=== PATIENT | female | born 1995 | race American Indian/Alaskan Native ===

== ENCOUNTER 2019-02-10 13:21 | Emergency (ER) | payer OTHER ==
[2019-02-10] MEDS ORDERED: TYLENOL PO ONE (14:17)
--- NOTE | 2019-02-10 14:17 | Emergency Department Report ---
Chief Complaint: Sore Throat Stated Complaint: SORE THROAT/BODY PAIN Time Seen by Provider: 02/10/19 14:13 - HPI History of Present Illness: pt c/o sore throat three days hurts to swallow (+) body aches (+)fever (+) marijuana use took ibuprofen at 11 AM (+) sick contact with strep swabbed for strep in triage, sent to lab MSE screening note: Focused history and physical exam performed. Due to findings the following was ordered: rapid strep, tylenol ordered ED Disposition for MSE Condition: Stable
[2019-02-10] MEDS ORDERED: BICILLIN L-A IM ONE (15:39)
--- NOTE | 2019-02-10 15:44 | Emergency Department Report ---
ED Peds HEENT HPI - General Chief Complaint: Sore Throat Stated Complaint: SORE THROAT/BODY PAIN Time Seen by Provider: 02/10/19 14:13 Source: patient Mode of arrival: Ambulatory Limitations: No Limitations - History of Present Illness Initial Comments: Patient is a 23-year-old female who is presenting with sore throat for the past 2 days. Patient states that throat is painful when she swallows and pain is 6 out of 10 in severity. Patient has had objective fevers at home as well as mild body aches. Patient states she has mild congestion and a very minimal cough. She denies any nausea vomiting diarrhea at this time. Severity scale (0 -10): 4 - Related Data Previous Rx's Medication Instructions Recorded Last Taken Type HYDROcodone/APAP 5-325 [[place] 1 each PO Q6HR PRN #15 tablet 02/10/19 Unknown Rx 5/325] predniSONE [Deltasone] 20 mg PO QDAY #5 tab 02/10/19 Unknown Rx Allergies Allergy/AdvReac Type Severity Reaction Status Date / Time SEAFOOD Allergy Hives Uncoded 02/10/19 13:22 ED Review of Systems ROS: Stated complaint: SORE THROAT/BODY PAIN Other details as noted in HPI Comment: All other systems reviewed and negative ED Peds HEENT EXAM - General General appearance: alert Limitations: No Limitations - Head Head exam: Positive: atraumatic - Eye Eye Exam: Normal Apperance, PERRL, EOMI - ENT Throat Exam: Tonsillar Hypertorphy: Positive: Tonsillar Exudate - Neck Neck exam: Positive: normal inspection, lymphadenopathy - Respiratory Respiratory exam: Positive: normal lung sounds bilaterally. Negative: respiratory distress, wheezes, rales, rhonchi - Cardiovascular Cardiovascular Exam: Positive: regular rate, normal rhythm - GI/Abdominal GI/Abdominal exam: Positive: soft. Negative: distended, tenderness, guarding - Neurological Neurological Exam: Positive: Alert, Altered, Oriented X3 - Psychiatric Psychiatric exam: Positive: normal affect - Skin Skin exam: Positive: warm, dry, intact ED Course Vital Signs 02/10/19 14:14 Temperature 100.2 F H Pulse Rate 132 H Respiratory 18 Rate Blood Pressure 122/80 O2 Sat by Pulse 98 Oximetry ED Medical Decision Making - Medical Decision Making Patient has fever anterior cervical lymph nodes no cough and a sore throat and she is meeting criteria for him. Antibiotic therapy. Patient also has a family member who tested positive for strep almost a week ago. Critical care attestation.: If time is entered above; I have spent that time in minutes in the direct care of this critically ill patient, excluding procedure time. ED Disposition Clinical Impression: Pharyngitis Qualifiers: Pharyngitis/tonsillitis etiology: unspecified etiology Qualified Code(s): J02.9 - Acute pharyngitis, unspecified Disposition: TO HOME OR SELFCARE Is pt being admited?: No Does the pt Need Aspirin: No Condition: Stable Instructions: Pharyngitis (ED) Referrals: DONTE SPANGLER MD [Primary Care Provider] - 3-5 Days Time of Disposition: 15:44
[2019-02-10 16:17] VITALS: BP 121/77
== END 2019-02-10 16:09 | disposition home or self-care (01) ==
LOC: ED 13:21
DX: J02.9 Acute pharyngitis, unspecified (principal)
CPT/HCPCS: 87430; 96372; 99283; J0561

== ENCOUNTER 2019-02-27 09:43 | Emergency (ER) | payer OTHER ==
[2019-02-27] MEDS ORDERED: IBUPROFEN PO ONE (10:21)
[2019-02-27] MEDS ORDERED: TESSALON PERLES PO ONE (10:21)
[2019-02-27] MEDS ORDERED: ZOFRAN ODT PO ONE (10:28)
--- NOTE | 2019-02-27 10:48 | Emergency Department Report ---
Upper Respiratory HPI - HPI Chief Complaint: Upper Respiratory Infection Stated Complaint: GENERAL SICKNESS/BACK PAIN Time Seen by Provider: 02/27/19 10:21 Duration: 1 week URI Symptoms: Rhinorrhea: Yes, Sore Throat: No, Ear Pain: No, Cough: Yes, Shortness of Breath: No, Sick Contacts: No, Unable to Take Fluids: No, Urine Output Abnormal: No, Listless Behavior: No Other History: This is a 23-year-old female nontoxic, well nourished in appearance, no acute signs of distress presents to the ED with c/o of productive cough, body aches, rhinorrhea, nasal congestion x1 week. Patient describes productive cough as yellow mucus production. Patient denies any sick contact. Patient denies any recent travels, long car, recent hospital stays. Patient denies any calf pain or calf tenderness. Patient stated that coughing made her have some nausea vomiting. Patient denies any chest pain, short of breath, fever, chills, hemoptysis, numbness, tingling, headache or stiff neck. Patient denies any allergies. - Home Meds and Allergies Home Medications: Previous Rx's Medication Instructions Recorded Last Taken Type HYDROcodone/APAP 5-325 [[place] 1 each PO Q6HR PRN #15 tablet 02/10/19 Unknown Rx 5/325] predniSONE [Deltasone] 20 mg PO QDAY #5 tab 02/10/19 Unknown Rx Azithromycin [Zithromax Z-JO] 250 mg PO DAILY #6 tablet 02/27/19 Unknown Rx Benzonatate [Tessalon Perle] 100 mg PO Q8H PRN #20 capsule 02/27/19 Unknown Rx Ibuprofen [Motrin] 600 mg PO Q8H PRN #20 tablet 02/27/19 Unknown Rx Allergies/Adverse Reactions: Allergies Allergy/AdvReac Type Severity Reaction Status Date / Time SEAFOOD Allergy Hives Uncoded 02/10/19 13:22 ED Review of Systems ROS: Stated complaint: GENERAL SICKNESS/BACK PAIN Other details as noted in HPI Constitutional: denies: chills, fever Eyes: denies: eye pain, eye discharge, vision change ENT: congestion. denies: ear pain, throat pain Respiratory: cough. denies: shortness of breath, wheezing Cardiovascular: denies: chest pain, palpitations Endocrine: no symptoms reported Gastrointestinal: nausea, vomiting. denies: abdominal pain, diarrhea Genitourinary: denies: urgency, dysuria, discharge Musculoskeletal: denies: back pain, joint swelling, arthralgia Skin: denies: rash, lesions Neurological: denies: headache, weakness, paresthesias Psychiatric: denies: anxiety, depression Hematological/Lymphatic: denies: easy bleeding, easy bruising ED Past Medical Hx - Past Medical History Previous Medical History?: No - Surgical History Past Surgical History?: No - Social History Smoking Status: Never Smoker Substance Use Type: Marijuana - Medications Home Medications: Home Medications Medication Instructions Recorded Confirmed Last Taken Type HYDROcodone/APAP 5-325 [[place] 1 each PO Q6HR PRN #15 tablet 02/10/19 Unknown Rx 5/325] predniSONE [Deltasone] 20 mg PO QDAY #5 tab 02/10/19 Unknown Rx Azithromycin [Zithromax Z-JO] 250 mg PO DAILY #6 tablet 02/27/19 Unknown Rx Benzonatate [Tessalon Perle] 100 mg PO Q8H PRN #20 capsule 02/27/19 Unknown Rx Ibuprofen [Motrin] 600 mg PO Q8H PRN #20 tablet 02/27/19 Unknown Rx ED Bronchiolitis Physical Exam - Exam General: Vital signs noted. No distress. Alert and acting appropriately. Neurologic: Alert and oriented, no deficits. Musculoskeletal: Unremarkable. ED Physical Exam - General Limitations: No Limitations General appearance: alert, in no apparent distress - Head Head exam: Present: atraumatic, normocephalic - Eye Eye exam: Present: normal appearance - ENT ENT exam: Present: normal exam, normal orophraynx - Neck Neck exam: Present: normal inspection, full ROM. Absent: tenderness, meningismus, lymphadenopathy - Respiratory Respiratory exam: Present: normal lung sounds bilaterally. Absent: respiratory distress, wheezes, rales, rhonchi, stridor, chest wall tenderness, accessory muscle use, decreased breath sounds, prolonged expiratory - Cardiovascular Cardiovascular Exam: Present: regular rate, normal rhythm, normal heart sounds. Absent: bradycardia, tachycardia, irregular rhythm, systolic murmur, diastolic murmur, rubs, gallop - GI/Abdominal GI/Abdominal exam: Present: soft, normal bowel sounds. Absent: distended, tenderness, guarding, rebound, rigid, diminished bowel sounds - Extremities Exam Extremities exam: Present: normal inspection, full ROM - Back Exam Back exam: Present: normal inspection, full ROM - Neurological Exam Neurological exam: Present: alert, oriented X3 - Psychiatric Psychiatric exam: Present: normal affect, normal mood - Skin Skin exam: Present: warm, dry, intact, normal color. Absent: rash ED Course - Reevaluation(s) Reevaluation #1: 02/27/19 10:48 Patient is speaking in full sentences with no signs of distress noted. ED Medical Decision Making - Medical Decision Making This is a 23-year-old female that presents with bronchitis. Patient is stable and was examined by me. Chest x-ray has been obtained and dictated by radiologist with normal exam. Patient is notified of x-ray results with no questions noted. Due to patient having symptoms of upper respiratory infection and worsening I will treat patient empirically with zpak. Patient was instructed to increase hydration, rest and take Motrin for fever episodes. Patient received motrin and tesslone perrls in the ED. Vitals stable. Patient is nonfebrile and normal heart rate. Patient was instructed Follow-up with a primary care doctor in 3-5 days or if symptoms worsen and continue return to emergency room as soon as possible. At time time of discharge, the patient does not seem toxic or ill in appearance. No acute signs of distress noted. Patient agrees to discharge treatment plan of care. No further questions noted by the patient. Critical care attestation.: If time is entered above; I have spent that time in minutes in the direct care of this critically ill patient, excluding procedure time. ED Disposition Clinical Impression: Bronchitis Disposition: DC-01 TO HOME OR SELFCARE Is pt being admited?: No Does the pt Need Aspirin: No Condition: Stable Instructions: Acute Bronchitis (ED) Additional Instructions: Follow-up with a primary care doctor in 3-5 days or if symptoms worsen and continue return to emergency room as soon as possible. Prescriptions: Ibuprofen [Motrin] 600 mg PO Q8H PRN #20 tablet PRN Reason: Pain Benzonatate [Tessalon Perle] 100 mg PO Q8H PRN #20 capsule PRN Reason: Cough Azithromycin [Zithromax Z-JO] 250 mg PO DAILY #6 tablet Referrals: PRIMARY CAREMD [Primary Care Provider] - 3-5 Days ZACHARY MOILNA MD [Staff Physician] - 3-5 Days [facility] [Outside] - 3-5 Days [facility] [Outside] - 3-5 Days Forms: Work/School Release Form(ED)
[2019-02-27 10:51] VITALS: BP 107/73
--- NOTE | 2019-02-27 10:51 | XRay Report ---
PROCEDURE: XR CHEST ROUTINE 2V TECHNIQUE: PA and lateral chest HISTORY: cough COMPARISONS: None FINDINGS: Trachea midline. Heart size normal. No pneumothorax. No sizable effusion. No acute airspace disease No acute bony abnormality IMPRESSION: No active pulmonary disease.. This document is electronically signed by Edu Rodriguez MD., February 27 2019 10:49:18 AM ET
[2019-02-28] MEDS ORDERED: NACL 0.9% 1000 ML 1,000 ML ONE (09:34)
== END 2019-02-27 11:00 | disposition home or self-care (01) ==
LOC: ED 09:43
DX: J40 Bronchitis, not specified as acute or chronic (principal); Z91.013 Allergy to seafood
CPT/HCPCS: 71046; 99283; J7030; Q0162

== ENCOUNTER 2019-02-28 07:40 | Emergency (ER) | payer OTHER ==
--- NOTE | 2019-02-28 08:44 | Emergency Department Report ---
ED Back Pain/Injury HPI - General Chief Complaint: Nausea/Vomiting/Diarrhea Stated Complaint: FLU LIKE SYM/PAIN Time Seen by Provider: 02/28/19 08:20 Source: patient Limitations: No Limitations - History of Present Illness Initial Comments: Patient is a 23-year-old female who comes to the ER for the second day in a row complaining of symptoms that occur at night around 5 6:00 where she gets up with chills, shaking, and vomiting. Patient was recently diagnosed with bronchitis and sent home with medications. Patient denies chest pain or shortness of breath. She denies any medical history. She denies previous surgeries.Pt has no pcp. On arrival VSS, she is not vomiting and is in no acute distress Similar Symptoms Previously: Yes Place: home Radiation: none Severity: mild Consistency: intermittent Improves With: none Worsens With: none Associated Symptoms: fever/chills, nausea/vomiting - Related Data Previous Rx's Medication Instructions Recorded Last Taken Type Ondansetron [Zofran Odt] 4 mg PO Q8HR PRN #10 tab.rapdis 02/28/19 Unknown Rx Allergies Allergy/AdvReac Type Severity Reaction Status Date / Time SEAFOOD Allergy Hives Uncoded 02/10/19 13:22 ED Review of Systems ROS: Stated complaint: FLU LIKE SYM/PAIN Other details as noted in HPI Comment: All other systems reviewed and negative Constitutional: chills Eyes: as per HPI. denies: eye pain ENT: as per HPI. denies: ear pain Respiratory: see HPI Cardiovascular: denies: chest pain, palpitations Endocrine: denies: excessive sweating Gastrointestinal: as per HPI, nausea, vomiting. denies: abdominal pain Genitourinary: as per HPI. denies: urgency, dysuria Musculoskeletal: as per HPI, back pain Skin: denies: rash, lesions Neurological: denies: headache, weakness Psychiatric: denies: anxiety, depression Hematological/Lymphatic: denies: easy bleeding ED Past Medical Hx - Past Medical History Medical history: no medical history Surgical history: no surgical history Psychiatric history: no pertinent history BELLY DANCER history: no BELLY DANCER history Family history: no significant family history - Social History Smoking Status: Never Smoker ED Back Pain Physical Exam - Exam General: Vital signs noted. No distress. Alert and acting appropriately. A/O NO NYSTAGMUS TM NORMAL, NOT RED, NO BULGING S1S2 NO MURMUR BRUIT OR RUB LUNGS CLEAR TO AUSCULTATION ABD SOFT NON TENDER NO CVA TENDERNESS Back/Abdomen: No Abdominal Tenderness, No Perithoracic Tenderness, No Perilumbar Tenderness, No Sacroiliac Tenderness, No Flank Tenderness, No Straight Leg Raise Pain Neuro: Yes Normal Sensation, Yes Normal DTR's, Yes Normal Gait, No Motor Weakness ED Course Vital Signs 02/28/19 07:52 Temperature 98.1 F Pulse Rate 66 Respiratory 16 Rate Blood Pressure 127/71 O2 Sat by Pulse 99 Oximetry Ed Back Pain Tests - Tests Tests: Abnormal UA ED Medical Decision Making - Lab Data Result diagrams: 02/28/19 08:56 02/28/19 08:56 - Medical Decision Making Vital Signs 02/28/19 07:52 Temperature 98.1 F Pulse Rate 66 Respiratory 16 Rate Blood Pressure 127/71 O2 Sat by Pulse 99 Oximetry Labs 02/28/19 02/28/19 02/28/19 08:40 08:56 08:56 WBC 5.4 RBC 4.03 Hgb 11.7 Hct 34.6 MCV 86 MCH 29 MCHC 34 RDW 14.2 Plt Count 326 Sodium 141 Potassium 3.9 Chloride 106.2 Carbon Dioxide 24 Anion Gap 15 BUN 7 Creatinine 0.9 Estimated GFR > 60 BUN/Creatinine Ratio 8 Glucose 97 Calcium 9.2 Total Bilirubin 0.50 Direct Bilirubin < 0.2 AST 13 ALT 8 Alkaline Phosphatase 61 Total Protein 6.8 Albumin 4.0 Albumin/Globulin Ratio 1.4 Lipase 16 Urine Color Yellow Urine Turbidity Slightly-cloudy Urine pH 5.0 Ur Specific [place] 1.025 Urine Protein <15 mg/dl Urine Glucose (UA) Neg Urine Ketones 80 Urine Blood Sm Urine Nitrite Neg Urine Bilirubin Neg Urine Urobilinogen < 2.0 Ur Leukocyte Esterase Tr Urine WBC (Auto) 6.0 Urine RBC (Auto) 1.0 U Epithel Cells (Auto) 13.0 Urine Bacteria (Auto) 1+ Urine Mucus 1+ Urine HCG, Qual Negative urine noted 1L NS and zofran given labs noted discussed findings with pt. she was recently diagnosed with URTI and sent home on azithromycin and other symptom control meds. Pt was reassured. we discussed the findings and timing of her medications which may be making her nauseated. Just reassuring the patient seem to make her feel better. She is being discharged home with family and a pcp referral to follow up in 48 hours. Vital Signs 02/28/19 02/28/19 07:52 10:38 Temperature 98.1 F Pulse Rate 66 Respiratory 16 17 Rate Blood Pressure 127/71 O2 Sat by Pulse 99 Oximetry Critical care attestation.: If time is entered above; I have spent that time in minutes in the direct care of this critically ill patient, excluding procedure time. ED Disposition Clinical Impression: Dehydration, Bronchitis Disposition: - TO HOME OR SELFCARE Is pt being admited?: No Does the pt Need Aspirin: No Condition: Stable Instructions: Dehydration (ED), Chronic Bronchitis (ED) Additional Instructions: MOTRIN OR TYLENOL FOR PAIN HYDRATE WELL WITH WATER MED ORDERED TODAY FOLLOW UP WITH PCP REFERRAL BELOW. DIET AND ACTIVITY TOLERATED CONTINUE YOUR MEDS GIVEN TO YOU 02/27 WHEN HERE ALL LABS NORMAL TODAY Prescriptions: Ondansetron [Zofran Odt] 4 mg PO Q8HR PRN #10 tab.rapdis PRN Reason: Vomiting Referrals: DONTE SPANGLER MD [Primary Care Provider] - 3-5 Days Time of Disposition: 10:21
[2019-02-28 08:57] LABS: Bacteria,Urine 1+ /HPF (Negative); Bilirubin,Urine NEG (Negative); Blood,Urine SM (Negative); Color,Urine Yellow (Yellow); Mucus,Urine 1+ /HPF; Protein,Urine <15 mg/dL mg/dL (Negative); Urobilinogen,Urine < 2.0 mg/dL (<2.0)
[2019-02-28 08:59] LABS: HCG Qualitative,Urine Negative (Negative)
[2019-02-28] MEDS ORDERED: NACL 0.9% 1000 ML 1,000 ML IV ONE (09:13)
[2019-02-28 09:19] LABS: Hematocrit 34.6 % (30.3-42.9); Hemoglobin 11.7 gm/dl (10.1-14.3); Mean Corpuscular HGB Conc 34 % (30-34); Mean Corpuscular Volume 86 fl (79-97); Platelet Count 326 K/mm3 (140-440); Red Blood Count 4.03 M/mm3 (3.65-5.03); Red Cell Distribution Width 14.2 % (13.2-15.2)
[2019-02-28 09:47] LABS: Alanine Aminotransferase 8 units/L (7-56); BUN/Creatinine Ratio 8; Blood Urea Nitrogen 7 mg/dL (7-17); Calcium 9.2 mg/dL (8.4-10.2); Hemolysis Index 1
[2019-02-28] MEDS ORDERED: ZOFRAN IV ONE (09:47)
[2019-02-28 09:48] LABS: Bilirubin,Direct < 0.2 mg/dL (0-0.2)
[2019-02-28] MEDS ORDERED: TORADOL IV ONE (10:29)
[2019-02-28 11:20] VITALS: BP 125/79
== END 2019-02-28 11:21 | disposition home or self-care (01) ==
LOC: ED 07:40
DX: E86.0 Dehydration (principal); J40 Bronchitis, not specified as acute or chronic; Z91.013 Allergy to seafood
CPT/HCPCS: 36415; 80048; 80076; 81001; 81025; 83690; 85027; 96361; 96374; 96375; 99283; J1885; J2405

== ENCOUNTER 2019-03-26 17:32 | Emergency (ER) | payer SELFPAY ==
[2019-03-26 17:39] VITALS: BP 140/96
== END 2019-03-26 19:20 | disposition left against medical advice (07) ==
LOC: ED 17:32
DX: R11.2 Nausea with vomiting, unspecified (principal); Z53.21 Procedure and treatment not carried out due to patient leaving prior to being seen by health care provider

== ENCOUNTER 2019-08-08 20:17 | Emergency (ER) | payer SELFPAY ==
--- NOTE | 2019-08-08 22:18 | Emergency Department Report ---
Blank Doc - Documentation Documentation: 23-year-old female that presents with vaginal discharge. This initial assessment/diagnostic orders/clinical plan/treatment(s) is/are subject to change based on patient's health status, clinical progression and re- assessment by fellow clinical providers in the ED. Further treatment and workup at subsequent clinical providers discretion. Patient/guardians urged not to elope from the ED as their condition may be serious if not clinically assessed and managed. Initial orders include: 1- Patient sent to [facility] for further evaluation and treatment 2- UA 3- pelvic exam to be done
[2019-08-08 22:20] VITALS: BP 123/89
[2019-08-09 01:42] LABS: Bacteria,Urine 1+ /HPF (Negative); Bilirubin,Urine NEG (Negative); Blood,Urine SM (Negative); Color,Urine Yellow (Yellow); Mucus,Urine 2+ /HPF; Protein,Urine <15 mg/dL mg/dL (Negative); Urobilinogen,Urine < 2.0 mg/dL (<2.0)
[2019-08-09 01:44] LABS: HCG Qualitative,Urine Negative (Negative)
== END 2019-08-09 00:37 | disposition left against medical advice (07) ==
LOC: ED 20:17
DX: N89.8 Other specified noninflammatory disorders of vagina (principal); Z53.21 Procedure and treatment not carried out due to patient leaving prior to being seen by health care provider
CPT/HCPCS: 81001; 81025

== ENCOUNTER 2020-01-09 13:40 | Emergency (ER) | payer SELFPAY ==
--- NOTE | 2020-01-09 13:53 | Emergency Department Report ---
Blank Doc - Documentation Documentation: 24-year-old female that presents with right sided chest pain and abnormal vagi nal bleeding. Worse with movement and resolved with rest. Stated pain causes SOB but otherwise denies any SOB. This initial assessment/diagnostic orders/clinical plan/treatment(s) is/are subject to change based on patient's health status, clinical progression and re- assessment by fellow clinical providers in the ED. Further treatment and workup at subsequent clinical providers discretion. Patient/guardians urged not to elope from the ED as their condition may be serious if not clinically assessed and managed. Initial orders include: 1- Patient sent to [facility] for further evaluation and treatment 2- labs 3- EKG
[2020-01-09 13:55] VITALS: BP 125/71
[2020-01-09 14:54] LABS: Basophils % (Auto) 0.6 % (0.0-1.8); Eosinophils % (Auto) 0.4 % (0.0-4.3); Hematocrit 39.2 % (30.3-42.9); Lymphocytes # (Auto) 2.2 K/mm3 (1.2-5.4); Lymphocytes % (Auto) 28.4 % (13.4-35.0); Mean Corpuscular HGB Conc 33 % (30-34); Mean Corpuscular Volume 89 fl (79-97); Monocytes # (Auto) 0.8 K/mm3 (0.0-0.8); Monocytes % (Auto) 9.6 % (0.0-7.3); Platelet Count 329 K/mm3 (140-440); Red Blood Count 4.39 M/mm3 (3.65-5.03); Red Cell Distribution Width 13.7 % (13.2-15.2)
[2020-01-09 15:15] LABS: BUN/Creatinine Ratio 10; Blood Urea Nitrogen 8 mg/dL (7-17); Calcium 9.4 mg/dL (8.4-10.2); Hemolysis Index 5
[2020-01-09 18:48] LABS: Bacteria,Urine 1+ /HPF (Negative); Mucus,Urine 1+ /HPF
[2020-01-09 18:50] LABS: Color,Urine Yellow (Yellow)
[2020-01-09 18:51] LABS: Bilirubin,Urine Negative (Negative); Blood,Urine Moderate (Negative); PH,Urine 6.5 (5.0-7.0); Urobilinogen,Urine < 2.0 mg/dL (<2.0)
[2020-01-09] MEDS ORDERED: ALBUTEROL 2.5 MG/3 ML NEBU IH ONE (19:15)
--- NOTE | 2020-01-09 19:43 | Emergency Department Report ---
ED HPI - General Chief complaint: Vaginal Bleeding Stated complaint: CHEST TIGHTMESS,VAGINAL BLEEDING Time Seen by Provider: 01/09/20 13:52 Source: patient Mode of arrival: Ambulatory Limitations: No Limitations - History of Present Illness Initial comments: Ms. Levi is a 24-year-old -[place] female who presents for vaginal bleeding x1 month intermittently however states last menstrual cycle was 2 weeks ago. Vaginal bleeding bright red he is using 4-5 pads daily. Symptoms are exacerbated by nothing symptoms are relieved by nothing MD Complaint: abdominal pain, vaginal bleeding Onset/Timin -: month(s) Location: pelvis, abdomen Radiation: LLQ, RLQ Severity: moderate Severity scale (0 -10): 4 Quality: cramping Consistency: constant Improves with: none Worsens with: none Associated symptoms: vaginal bleeding, abdominal pain Vaginal bleeding: clots :: Yes Last menstrual period: 12/27/19 - Related Data : 0 Para: 0 Ab: 0 Previous Rx's Medication Instructions Recorded Last Taken Type Ondansetron [Zofran Odt] 4 mg PO Q8HR PRN #10 tab.rapdis 02/28/19 Unknown Rx Albuterol INH(or & Nicu Only) 2 puff IH QID PRN #8.5 gram 01/09/20 Unknown Rx [ProAir HFA Inhaler] cephALEXin [Keflex] 500 mg PO BID 10 Days #20 cap 01/09/20 Unknown Rx predniSONE [Deltasone] 40 mg PO QDAY 5 Days #10 tab 01/09/20 Unknown Rx Allergies Allergy/AdvReac Type Severity Reaction Status Date / Time SEAFOOD Allergy Hives Uncoded 03/26/19 17:33 ED Review of Systems ROS: Stated complaint: CHEST TIGHTMESS,VAGINAL BLEEDING Other details as noted in HPI Constitutional: denies: chills, fever Eyes: denies: eye pain, eye discharge, vision change ENT: denies: ear pain, throat pain Respiratory: cough, shortness of breath, wheezing Cardiovascular: chest pain (chest wall pain with cough ). denies: palpitations Endocrine: no symptoms reported Gastrointestinal: abdominal pain. denies: nausea, vomiting, diarrhea, constipation, melena Genitourinary: denies: urgency, dysuria, discharge Musculoskeletal: denies: back pain, joint swelling, arthralgia Skin: denies: rash, lesions Neurological: denies: headache, weakness, paresthesias Psychiatric: denies: anxiety, depression Hematological/Lymphatic: denies: easy bleeding, easy bruising ED Past Medical Hx - Past Medical History Previous Medical History?: Yes Hx Asthma: Yes - Surgical History Past Surgical History?: No - Social History Smoking Status: Never Smoker Substance Use Type: Marijuana - Medications Home Medications: Home Medications Medication Instructions Recorded Confirmed Last Taken Type Ondansetron [Zofran Odt] 4 mg PO Q8HR PRN #10 tab.rapdis 02/28/19 Unknown Rx Albuterol INH(or & Nicu Only) 2 puff IH QID PRN #8.5 gram 01/09/20 Unknown Rx [ProAir HFA Inhaler] cephALEXin [Keflex] 500 mg PO BID 10 Days #20 cap 01/09/20 Unknown Rx predniSONE [Deltasone] 40 mg PO QDAY 5 Days #10 tab 01/09/20 Unknown Rx ED Physical Exam - General Limitations: No Limitations General appearance: alert, in no apparent distress - Head Head exam: Present: atraumatic, normocephalic - Eye Eye exam: Present: normal appearance, EOMI Pupils: Present: normal accommodation - ENT ENT exam: Present: mucous membranes moist - Neck Neck exam: Present: normal inspection, full ROM. Absent: tenderness - Respiratory Respiratory exam: Present: normal lung sounds bilaterally, wheezes, chest wall tenderness (right lateral chest pain with palpation and deep inspiration). Absent: respiratory distress, rales, rhonchi, stridor, prolonged expiratory - Cardiovascular Cardiovascular Exam: Present: regular rate, normal rhythm, normal heart sounds. Absent: systolic murmur, diastolic murmur, rubs, gallop - GI/Abdominal GI/Abdominal exam: Present: soft, normal bowel sounds. Absent: distended, tenderness, guarding, rebound, rigid, bruit, hernia - Rectal Rectal exam: Present: deferred - External exam: Present: other (deferred per patient ) - Extremities Exam Extremities exam: Present: normal inspection, full ROM, normal capillary refill. Absent: tenderness, pedal edema, joint swelling - Back Exam Back exam: Present: normal inspection, full ROM. Absent: tenderness, CVA t enderness (R), CVA tenderness (L), muscle spasm, vertebral tenderness, rash noted - Neurological Exam Neurological exam: Present: alert, oriented X3, CN II-XII intact, normal gait, reflexes normal - Psychiatric Psychiatric exam: Present: normal affect, normal mood - Skin Skin exam: Present: warm, dry, intact, normal color. Absent: rash ED Course Vital Signs 01/09/20 13:52 Temperature 98.4 F Pulse Rate 83 Respiratory 18 Rate Blood Pressure 125/71 O2 Sat by Pulse 100 Oximetry ED Medical Decision Making - Lab Data Result diagrams: 01/09/20 14:30 01/09/20 14:30 Labs 01/09/20 01/09/20 01/09/20 14:30 14:30 14:30 WBC 7.9 RBC 4.39 Hgb 13.0 Hct 39.2 MCV 89 MCH 30 MCHC 33 RDW 13.7 Plt Count 329 Lymph % (Auto) 28.4 [place] % (Auto) 9.6 H Eos % (Auto) 0.4 Baso % (Auto) 0.6 Lymph # 2.2 [place] # 0.8 Eos # 0.0 Baso # 0.0 Seg Neutrophils % 61.0 Seg Neutrophils # 4.8 Sodium 139 Potassium 3.8 Chloride 102.1 Carbon Dioxide 22 Anion Gap 19 BUN 8 Creatinine 0.8 Estimated GFR > 60 BUN/Creatinine Ratio 10 Glucose 96 Calcium 9.4 HCG, Qual Positive HCG, Quant Urine Color Urine Turbidity Urine pH Ur Specific [place] Urine Protein Urine Glucose (UA) Urine Ketones Urine Blood Urine Nitrite Ur Reducing Substances Urine Bilirubin Urine Ictotest Urine Urobilinogen Ur Leukocyte Esterase Urine WBC (Auto) Urine RBC (Auto) U Epithel Cells (Auto) Urine Bacteria (Auto) Urine Mucus Blood Type 01/09/20 01/09/20 01/09/20 17:55 Unknown Unknown WBC RBC Hgb Hct MCV MCH MCHC RDW Plt Count Lymph % (Auto) [place] % (Auto) Eos % (Auto) Baso % (Auto) Lymph # [place] # Eos # Baso # Seg Neutrophils % Seg Neutrophils # Sodium Potassium Chloride Carbon Dioxide Anion Gap BUN Creatinine Estimated GFR BUN/Creatinine Ratio Glucose Calcium HCG, Qual HCG, Quant 749.4 H Urine Color Yellow Urine Turbidity Hazy Urine pH 6.5 Ur Specific [place] 1.015 Urine Protein 30 mg/dl Urine Glucose (UA) Negative Urine Ketones Negative Urine Blood Moderate A Urine Nitrite Negative Ur Reducing Substances Not Reportable Urine Bilirubin Negative Urine Ictotest Not Reportable Urine Urobilinogen < 2.0 Ur Leukocyte Esterase Small Urine WBC (Auto) 3.0 Urine RBC (Auto) 146.0 U Epithel Cells (Auto) 29.0 H Urine Bacteria (Auto) 1+ Urine Mucus 1+ Blood Type O POSITIVE - Radiology Data Radiology results: report reviewed, image reviewed Findings [facility] [address] [place] [address] Ultrasound Report Signed Patient: MARY LEVI MR#: [id number] : 1995 Acct:[id number] Age/Sex: 24 / F ADM Date: 01/09/20 Loc: ED Attending Dr: Ordering Physician: SOPHY ROMERO NP Date of Service: 01/09/20 Procedure(s): US OB <= 14 weeks fetus Accession Number(s): [id number] cc: SOPHY ROMERO NP Obstetrical ultrasound. HISTORY: Abdominal pain. Possible . FINDINGS: Imaging was performed transabdominally. The uterus measures 8 x 3.9 x 5.1 cm. The endometrial stripe measures 4.4 mm. No intrauter ine . Right ovary measures 2.3 x 2 x 2.5 cm. Left ovary measures 2.6 x 1.82). Negative for adnexal mass or fluid. IMPRESSION: Negative for intrauterine . Signer Name: Alfonso Ortiz MD Signed: 01/09/2020 8:34 PM Workstation Name: [id number] Transcribed By: ES Dictated By: Alfonso Ortiz MD Electronically Authenticated By: Alfonso Ortiz MD Signed Date/Time: 01/09/202033 DD/ 32 TD/TT: - Medical Decision Making Ultrasound no IUP, this is likely miscarriage, ABO : O pos, patient will follow-up with [facility] in 2 to 3 days for repeat hCG , states bleeding has subsided. Lung sounds are now clear there is no chest wall pain this is likely asthma versus bronchitis exacerbation. Plan we will refill albuterol inhaler , prednisone. Patient to take Tylenol as needed for pain . I have discussed symptoms of ectopic and miscarriage with this patient and her significant other both verbalized agreement and understanding with discharge plan will follow-up with OB in 2 to 3 days as directed, will return to ED should symptoms suddenly worsen Critical care attestation.: If time is entered above; I have spent that time in minutes in the direct care of this critically ill patient, excluding procedure time. ED Disposition Clinical Impression: Threatened miscarriage in early , Abnormal uterine bleeding (AUB) Asthma Qualifiers: Asthma severity: mild Asthma persistence: intermittent Asthma complication type: with acute exacerbation Qualified Code(s): J45.21 - Mild intermittent asthma with (acute) exacerbation Disposition: TO HOME OR SELFCARE Is pt being admited?: No Does the pt Need Aspirin: No Condition: Stable Instructions: Threatened Miscarriage (ED), Asthma (ED) Prescriptions: predniSONE [Deltasone] 40 mg PO QDAY 5 Days #10 tab cephALEXin [Keflex] 500 mg PO BID 10 Days #20 cap Albuterol INH(or & Nicu Only) [ProAir HFA Inhaler] 2 puff IH QID PRN #8.5 gram PRN Reason: Shortness Of Breath Referrals: CARINA ROBLES MD [Staff Physician] - 3-5 Days Forms: Work/School Release Form(ED) Time of Disposition: 21:06
--- NOTE | 2020-01-09 20:38 | Ultrasound Report ---
Obstetrical ultrasound. HISTORY: Abdominal pain. Possible . FINDINGS: Imaging was performed transabdominally. The uterus measures 8 x 3.9 x 5.1 cm. The endometri al stripe measures 4.4 mm. No intrauterine . Right ovary measures 2.3 x 2 x 2.5 cm. Left ovary measures 2.6 x 1.82). Negative for adnexal mass or fluid. IMPRESSION: Negative for intrauterine . Signer Name: Alfonso Ortiz MD Signed: 01/09/2020 8:34 PM Workstation Name: [id number]
== END 2020-01-09 21:15 | disposition home or self-care (01) ==
LOC: ED 13:40
DX: O20.0 Threatened abortion (principal); J45.21 Mild intermittent asthma with (acute) exacerbation; F12.10 Cannabis abuse, uncomplicated; Z3A.01 Less than 8 weeks gestation of pregnancy; Z91.013 Allergy to seafood; Z79.899 Other long term (current) drug therapy
CPT/HCPCS: 36415; 76801; 80048; 81001; 84702; 84703; 85025; 86900; 86901

== ENCOUNTER 2020-01-11 21:49 | Emergency (ER) | payer OTHER ==
--- NOTE | 2020-01-11 23:25 | Emergency Department Report ---
ED General Adult HPI - General Chief complaint: Chest Pain Stated complaint: CHEST NECK AND ABDOMINAL PAIN LIGHT HEADED Time Seen by Provider: 01/11/20 23:24 Source: patient Mode of arrival: Ambulatory Limitations: No Limitations - History of Present Illness Initial comments: Patient is a 24-year-old female that presents emergency room with complaints of body aches. Patient is complaining of chest pain back pain and abdominal pain and dizziness. Patient states her symptoms started today at 1 PM. Patient states she received a shot at her [facility]'s office for an ectopic and immediately her symptoms started. Patient states she went home and tried to take some Tylenol in order to calm the symptoms down and they just worsen. Patient states her pain is a 10 out of 10. Patient states that her pain is better with rest. Patient states her pain is worse with movement and palpation.. Patient states her dizziness is better with rest and worse with movement. Patient states she is also having vaginal bleeding. Patient states her vaginal bleeding has increased. Patient states she received a shot at an clinic. Patient states she does not have an [facility] that she follows with. -: Sudden Severity scale (0 -10): 10 Quality: stabbing Consistency: constant Improves with: rest Worsens with: movement, other Associated Symptoms: chest pain. denies: cough, diaphoresis, fever/chills, headaches, loss of appetite, rash, seizure, shortness of breath, syncope, weakness Treatments Prior to Arrival: none - Related Data Previous Rx's Medication Instructions Recorded Last Taken Type Ondansetron [Zofran Odt] 4 mg PO Q8HR PRN #10 tab.rapdis 02/28/19 Unknown Rx Albuterol INH(or & Nicu Only) 2 puff IH QID PRN #8.5 gram 01/09/20 Unknown Rx [ProAir HFA Inhaler] cephALEXin [Keflex] 500 mg PO BID 10 Days #20 cap 01/09/20 Unknown Rx predniSONE [Deltasone] 40 mg PO QDAY 5 Days #10 tab 01/09/20 Unknown Rx HYDROcodone/APAP 5-325 [[place] 1 each PO Q4HR PRN #12 tablet 01/12/20 Unknown Rx 5/325] Ibuprofen [Motrin 800 MG tab] 800 mg PO Q8HR PRN #20 tablet 01/12/20 Unknown Rx Allergies Allergy/AdvReac Type Severity Reaction Status Date / Time SEAFOOD Allergy Hives Uncoded 03/26/19 17:33 ED Review of Systems ROS: Stated complaint: CHEST NECK AND ABDOMINAL PAIN LIGHT HEADED Other details as noted in HPI Constitutional: denies: chills, fever Eyes: denies: eye pain, eye discharge, vision change ENT: denies: ear pain, throat pain Respiratory: denies: cough, shortness of breath, wheezing Cardiovascular: chest pain. denies: palpitations Endocrine: no symptoms reported Gastrointestinal: nausea. denies: abdominal pain, vomiting, diarrhea Genitourinary: denies: urgency, dysuria, discharge Musculoskeletal: back pain. denies: joint swelling, arthralgia Skin: denies: rash, lesions Neurological: denies: headache, weakness, paresthesias Psychiatric: denies: anxiety, depression Hematological/Lymphatic: denies: easy bleeding, easy bruising ED Past Medical Hx - Past Medical History Previous Medical History?: Yes Hx Asthma: Yes - Social History Smoking Status: Never Smoker Substance Use Type: None - Medications Home Medications: Home Medications Medication Instructions Recorded Confirmed Last Taken Type Ondansetron [Zofran Odt] 4 mg PO Q8HR PRN #10 tab.rapdis 02/28/19 Unknown Rx Albuterol INH(or & Nicu Only) 2 puff IH QID PRN #8.5 gram 01/09/20 Unknown Rx [ProAir HFA Inhaler] cephALEXin [Keflex] 500 mg PO BID 10 Days #20 cap 01/09/20 Unknown Rx predniSONE [Deltasone] 40 mg PO QDAY 5 Days #10 tab 01/09/20 Unknown Rx HYDROcodone/APAP 5-325 [[place] 1 each PO Q4HR PRN #12 tablet 01/12/20 Unknown Rx 5/325] Ibuprofen [Motrin 800 MG tab] 800 mg PO Q8HR PRN #20 tablet 01/12/20 Unknown Rx ED Physical Exam - General Limitations: No Limitations General appearance: alert, in no apparent distress - Head Head exam: Present: atraumatic, normocephalic - Eye Eye exam: Present: normal appearance - ENT ENT exam: Present: mucous membranes moist - Neck Neck exam: Present: normal inspection, full ROM. Absent: tenderness, meningismus - Respiratory Respiratory exam: Present: normal lung sounds bilaterally, chest wall tenderness. Absent: respiratory distress, wheezes, rales, rhonchi, accessory muscle use, decreased breath sounds - Cardiovascular Cardiovascular Exam: Present: regular rate, normal rhythm. Absent: systolic murmur, diastolic murmur, rubs, gallop - GI/Abdominal GI/Abdominal exam: Present: soft, tenderness, normal bowel sounds - Extremities Exam Extremities exam: Present: normal inspection - Back Exam Back exam: Present: normal inspection - Neurological Exam Neurological exam: Present: alert, oriented X3 - Psychiatric Psychiatric exam: Present: normal affect, normal mood - Skin Skin exam: Present: warm, dry, intact, normal color. Absent: rash ED Course Vital Signs 01/11/20 01/12/20 01/12/20 22:54 01:31 01:40 Temperature 98.7 F Pulse Rate 101 H 92 H Respiratory 20 18 14 Rate Blood Pressure 120/76 111/73 [Right] O2 Sat by Pulse 99 98 Oximetry 01/12/20 02:40 Temperature Pulse Rate 94 H Respiratory 14 Rate Blood Pressure 110/70 [Right] O2 Sat by Pulse 99 Oximetry - Reevaluation(s) Reevaluation #1: Patient states her pain has improved. I discussed all results and clinical findings with patient. I discussed plan of care with patient. Patient agrees with plan of care. Patient is stable for discharge. Patient will be discharged home. Patient given discharge instructions. Patient voiced understanding of discharge instructions. 01/12/20 02:18 - Consultations Consultation #1: I discussed case with Dr. Cruz, [facility] on-call. Dr. Cruz recommends discharge home and follow-up with her clinic and with her office for repeat hCGs. 01/12/20 02:10 ED Medical Decision Making - Lab Data Result diagrams: 01/11/20 23:33 01/11/20 23:33 - EKG Data -: EKG Interpreted by [place] EKG shows normal: sinus rhythm, axis, intervals, QRS complexes, ST-T waves Rate: normal - Radiology Data Radiology results: report reviewed, image reviewed ULTRASOUND PELVIS INDICATION: vaginal bleeding. TECHNIQUE: Transvaginal. Duplex Color Doppler used: Yes. COMPARISON: None available FINDINGS: Uterus: Present. Size: 7.9 x 3.8 x 4.7 cm. Endometrial complex: Normal measuring 1.2 cm. Mass lesions: None. Additional findings: None. Right Ovary: Size: 3.8 x 2.0 x 1.7 cm Blood flow: Normal. Cyst or mass: None. Left Ovary: Size: 3.0 x 2.2 x 1.7 cm Blood flow: Normal. Cyst or mass: None. Urinary Bladder: Normal. Free Fluid: Minimal amount, likely physiologic. Additional Findings: A fluid-filled, dilated tubular structure along the left adnexal region may represent hydrosalpinx. IMPRESSION: 1. Possible left hydrosalpinx. 2. No other acute sonographic abnormality of the pelvis is seen to explain the patient's vaginal bleeding. CHEST 1 VIEW 01/11/2020 10:52 PM INDICATION / CLINICAL INFORMATION: Chest Pain. COMPARISON: 2 views of the chest from 02/27/2019. FINDINGS: SUPPORT DEVICES: None. HEART / MEDIASTINUM: No significant abnormality. LUNGS / PLEURA: No significant pulmonary or pleural abnormality. No pneumothorax. ADDITIONAL FINDINGS: No significant additional findings. IMPRESSION: 1. No acute abnormality of the chest. - Medical Decision Making Patient is a 24-year-old female that presents emergency room with multiple complaints. Patient's complaints include chest pain, neck pain, backache, body aches, a dizziness, nausea without vomiting. Patient had a recent ectopic for which she was given methotrexate injections at an clinic. Patient also complained of vaginal bleeding. Patient had labs done and were unremarkable except for an elevated hCG. Patient had a trans-vaginal ultrasound which was positive for hydrosalpinx but no other acute findings. I discussed all findings with our [facility] on-call, Dr. Cruz. C[facility] recommends discharge home and to follow-up with her clinic and with an [facility] office for serial ultrasounds and hCGs. - Differential Diagnosis ectopic , pelvic pain, abdominal pain, body aches, chest pain. Critical care attestation.: If time is entered above; I have spent that time in minutes in the direct care of this critically ill patient, excluding procedure time. ED Disposition Clinical Impression: Hydrosalpinx, Body aches, Chest wall pain, Abnormal uterine bleeding (AUB), Vaginal bleeding in Abdominal pain Qualifiers: Abdominal location: lower abdomen, unspecified Qualified Code(s): R10.30 - Lower abdominal pain, unspecified Qualifiers: Weeks of gestation: less than 8 weeks Qualified Code(s): Z3A.01 - Less than 8 weeks gestation of Chest pain Qualifiers: Chest pain type: unspecified Qualified Code(s): R07.9 - Chest pain, unspecified Disposition: TO HOME OR SELFCARE Is pt being admited?: No Does the pt Need Aspirin: No Condition: Stable Instructions: Methotrexate (Injection), Chest Pain (ED), Spontaneous Miscarriage (ED), Costochondritis (ED), Acute Abdominal Pain (ED), Abdominal Pain (ED), Abdominal Pain in (ED) Additional Instructions: Patient to follow-up with primary care in 2 to 3 days. Patient to follow-up with [facility] in 2 to 3 days. Patient to follow-up with her clinic as soon as possible. Patient to return to ER if condition worsens, changes or new symptoms arise. Patient is to take meds as directed. Patient to rest. Patient to increase water. Nothing per vagina until cleared by [facility]. Prescriptions: Ibuprofen [Motrin 800 MG tab] 800 mg PO Q8HR PRN #20 tablet PRN Reason: pain HYDROcodone/APAP 5-325 [[place] 5/325] 1 each PO Q4HR PRN #12 tablet PRN Reason: Pain Referrals: STEFANO CRUZ MD [Staff Physician] - 2-3 Days Forms: Work/School Release Form(ED) Time of Disposition: 02:21
[2020-01-11 23:55] LABS: Basophils % (Auto) 0.5 % (0.0-1.8); Eosinophils % (Auto) 0.4 % (0.0-4.3); Hematocrit 37.7 % (30.3-42.9); Hemoglobin 12.4 gm/dl (10.1-14.3); Lymphocytes # (Auto) 1.4 K/mm3 (1.2-5.4); Lymphocytes % (Auto) 18.9 % (13.4-35.0); Mean Corpuscular HGB Conc 33 % (30-34); Mean Corpuscular Volume 89 fl (79-97); Monocytes # (Auto) 0.9 K/mm3 (0.0-0.8); Platelet Count 278 K/mm3 (140-440); Red Blood Count 4.26 M/mm3 (3.65-5.03); Red Cell Distribution Width 13.3 % (13.2-15.2)
[2020-01-12 00:19] LABS: BUN/Creatinine Ratio 9; Blood Urea Nitrogen 8 mg/dL (7-17); Calcium 9.4 mg/dL (8.4-10.2); Hemolysis Index 3
--- NOTE | 2020-01-12 01:28 | Ultrasound Report ---
ULTRASOUND PELVIS INDICATION: vaginal bleeding. TECHNIQUE: Transvaginal. Duplex Color Doppler used: Yes. COMPARISON: None available FINDINGS: Uterus: Present. Size: 7.9 x 3.8 x 4.7 cm. Endometrial complex: Normal measuring 1.2 cm. Mass lesions: None. Additional findings: None. Right Ovary: Size: 3.8 x 2.0 x 1.7 cm Blood flow: Normal. Cyst or mass: None. Left Ovary: Size: 3.0 x 2.2 x 1.7 cm Blood flow: Normal. Cyst or mass: None. Urinary Bladder: Normal. Free Fluid: Minimal amount, likely physiologic. Additional Findings: A fluid-filled, dilated tubular structure along the left adnexal region may repr esent hydrosalpinx. IMPRESSION: 1. Possible left hydrosalpinx. 2. No other acute sonographic abnormality of the pelvis is seen to explain the patient's vaginal blee ding. Signer Name: Zeus Marshall MD Signed: 01/12/2020 1:23 AM Workstation Name: [id number]
[2020-01-12] MEDS: ONDANSETRON 4 MG/2 ML INJ IV ONE ×2 (01:30→02:32)
--- NOTE | 2020-01-12 01:30 | XRay Report ---
CHEST 1 VIEW 01/11/2020 10:52 PM INDICATION / CLINICAL INFORMATION: Chest Pain. COMPARISON: 2 views of the chest from 02/27/2019. FINDINGS: SUPPORT DEVICES: None. HEART / MEDIASTINUM: No significant abnormality. LUNGS / PLEURA: No significant pulmonary or pleural abnormality. No pneumothorax. ADDITIONAL FINDINGS: No significant additional findings. IMPRESSION: 1. No acute abnormality of the chest. Signer Name: Zeus Marshall MD Signed: 01/12/2020 1:25 AM Workstation Name: [id number]
[2020-01-12] MEDS: HYDROmorphone 1 MG/1 ML INJ IV ONE (01:31)
[2020-01-12] MEDS: ASPIRIN 325 MG TAB PO ONE (01:46)
[2020-01-12] MEDS ORDERED: ONDANSETRON 4 MG/2 ML INJ ONE (02:33)
[2020-01-12 02:49] VITALS: BP 110/70
== END 2020-01-12 02:40 | disposition home or self-care (01) ==
LOC: ED 21:49
DX: O23.521 Salpingo-oophoritis in pregnancy, first trimester (principal); O46.8X1 Other antepartum hemorrhage, first trimester; O26.891 Other specified pregnancy related conditions, first trimester; R07.89 Other chest pain; J45.909 Unspecified asthma, uncomplicated; Z79.1 Long term (current) use of non-steroidal anti-inflammatories (NSAID); Z3A.00 Weeks of gestation of pregnancy not specified; Z79.899 Other long term (current) drug therapy; Z91.013 Allergy to seafood
CPT/HCPCS: 36415; 71045; 76830; 80048; 84484; 84702; 85025; 93005; 93010; 96374; 96375; 96376; 99284; J1170; J2405

== ENCOUNTER 2020-10-21 08:40 | Emergency (ER) | payer OTHER ==
[2020-10-21 08:50] VITALS: BP 121/78
[2020-10-21 09:49] LABS: Basophils % (Auto) 0.5 % (0.0-1.8); Eosinophils % (Auto) 0.4 % (0.0-4.3); Hematocrit 39.8 % (30.3-42.9); Lymphocytes # (Auto) 1.1 K/mm3 (1.2-5.4); Lymphocytes % (Auto) 18.8 % (13.4-35.0); Mean Corpuscular HGB Conc 33 % (30-34); Mean Corpuscular Volume 89 fl (79-97); Monocytes # (Auto) 0.5 K/mm3 (0.0-0.8); Monocytes % (Auto) 7.9 % (0.0-7.3); Platelet Count 322 K/mm3 (140-440); Red Blood Count 4.46 M/mm3 (3.65-5.03); Red Cell Distribution Width 14.1 % (13.2-15.2)
[2020-10-21 09:56] LABS: Bacteria,Urine 1+ /HPF (Negative); Bilirubin,Urine NEG (Negative); Blood,Urine LG (Negative); Color,Urine Yellow (Yellow); Mucus,Urine 2+ /HPF; Protein,Urine <15 mg/dL mg/dL (Negative); Urobilinogen,Urine < 2.0 mg/dL (<2.0)
[2020-10-21 10:06] LABS: Alanine Aminotransferase 12 units/L (7-56); Albumin 4.2 g/dL (3.9-5); BUN/Creatinine Ratio 16; Blood Urea Nitrogen 13 mg/dL (7-17); Calcium 9.4 mg/dL (8.4-10.2); Hemolysis Index 5
[2020-10-21 10:09] LABS: HCG Qualitative,Urine Negative (Negative)
[2020-10-21] MEDS ORDERED: ALUM-MAG HYDROXIDE-SIMETHICONE 200-200-20MG/5ML ORAL LIQD 30 ML PO ONE (10:20)
[2020-10-21] MEDS ORDERED: LIDOCAINE VISCOUS 2% 15 ML ORAL LIQD PO ONE (10:20)
[2020-10-21] MEDS ORDERED: FAMOTIDINE 20 MG TAB PO ONE (10:21)
--- NOTE | 2020-10-21 10:22 | Emergency Department Report ---
ED General Adult HPI - General Chief complaint: Abdominal Pain Stated complaint: ABD BURNING/VOMITING/CHLLS/WEAK Time Seen by Provider: 10/21/20 09:46 Source: patient Mode of arrival: Ambulatory Limitations: No Limitations - History of Present Illness Initial comments: 25-year-old -Martiniquais female patient presents with complaints of sudden onset of nausea, vomiting, diarrhea, and burning upper abdominal pain starting around 3 or 4 AM last night. Patient states prior to going to sleep, she ate at [employer]. She reports that she awoke from her sleep feeling jittery and began to vomit. She denies any chest pain, shortness of breath, hematemesis/coffee-ground emesis, melena/hematochezia, cough, hematuria/dysuria/urinary frequency, or vaginal discharge. Patient rates her current abdominal pain is a 10/10 in severity. She denies alcohol intake or history of GERD -: Sudden - Related Data Previous Rx's Medication Instructions Recorded Last Taken Type Ondansetron [Zofran Odt] 4 mg PO Q8HR PRN #10 tab.rapdis 02/28/19 Unknown Rx Albuterol Mdi (or & Nicu Only) 2 puff IH QID PRN #8.5 gram 01/09/20 Unknown Rx [ProAir HFA Inhaler] cephALEXin [Keflex] 500 mg PO BID 10 Days #20 cap 01/09/20 Unknown Rx predniSONE [Deltasone] 40 mg PO QDAY 5 Days #10 tab 01/09/20 Unknown Rx HYDROcodone/APAP 5-325 [[place] 1 each PO Q4HR PRN #12 tablet 01/12/20 Unknown Rx 5/325] Ibuprofen [Motrin 800 MG tab] 800 mg PO Q8HR PRN #20 tablet 01/12/20 Unknown Rx Famotidine [Pepcid] 20 mg PO BID PRN #10 tablet 10/21/20 Unknown Rx Ondansetron [Zofran Odt] 4 mg PO Q8HR #12 tab.rapdis 10/21/20 Unknown Rx Sucralfate [Carafate] 1 gm PO Q6HR PRN #20 tablet 10/21/20 Unknown Rx Allergies Allergy/AdvReac Type Severity Reaction Status Date / Time SEAFOOD Allergy Hives Uncoded 03/26/19 17:33 ED Review of Systems ROS: Stated complaint: ABD BURNING/VOMITING/CHLLS/WEAK Other details as noted in HPI Constitutional: denies: chills, diaphoresis, fever, malaise, weakness ENT: denies: throat pain Respiratory: denies: cough, shortness of breath Cardiovascular: denies: chest pain Gastrointestinal: abdominal pain, nausea, diarrhea. denies: constipation, hematemesis, melena, hematochezia Genitourinary: denies: urgency, dysuria, frequency, hematuria Skin: denies: rash Neurological: denies: headache Hematological/Lymphatic: denies: easy bleeding ED Past Medical Hx - Past Medical History Previous Medical History?: Yes Hx Asthma: Yes - Surgical History Past Surgical History?: No - Social History Smoking Status: Current Some Day Smoker Substance Use Type: Alcohol, Marijuana - Medications Home Medications: Home Medications Medication Instructions Recorded Confirmed Last Taken Type Ondansetron [Zofran Odt] 4 mg PO Q8HR PRN #10 tab.rapdis 02/28/19 Unknown Rx Albuterol Mdi (or & Nicu Only) 2 puff IH QID PRN #8.5 gram 01/09/20 Unknown Rx [ProAir HFA Inhaler] cephALEXin [Keflex] 500 mg PO BID 10 Days #20 cap 01/09/20 Unknown Rx predniSONE [Deltasone] 40 mg PO QDAY 5 Days #10 tab 01/09/20 Unknown Rx HYDROcodone/APAP 5-325 [[place] 1 each PO Q4HR PRN #12 tablet 01/12/20 Unknown Rx 5/325] Ibuprofen [Motrin 800 MG tab] 800 mg PO Q8HR PRN #20 tablet 01/12/20 Unknown Rx Famotidine [Pepcid] 20 mg PO BID PRN #10 tablet 10/21/20 Unknown Rx Ondansetron [Zofran Odt] 4 mg PO Q8HR #12 tab.rapdis 10/21/20 Unknown Rx Sucralfate [Carafate] 1 gm PO Q6HR PRN #20 tablet 10/21/20 Unknown Rx ED Physical Exam - General Limitations: No Limitations General appearance: alert, in no apparent distress - Head Head exam: Present: atraumatic, normocephalic - Eye Eye exam: Present: normal appearance - ENT ENT exam: Present: mucous membranes moist - Neck Neck exam: Present: normal inspection - Respiratory Respiratory exam: Present: normal lung sounds bilaterally. Absent: respiratory distress - Cardiovascular Cardiovascular Exam: Present: regular rate, normal rhythm. Absent: systolic murmur, diastolic murmur, rubs, gallop - GI/Abdominal GI/Abdominal exam: Present: soft, tenderness, normal bowel sounds. Absent: distended, guarding, rebound (Mild epigastric), rigid - Back Exam Back exam: Present: full ROM - Neurological Exam Neurological exam: Present: alert, oriented X3 - Psychiatric Psychiatric exam: Present: normal affect, normal mood - Skin Skin exam: Present: warm, dry, intact, normal color. Absent: rash, cyanosis, diaphoretic, erythema, ecchymosis ED Course Vital Signs 10/21/20 08:47 Temperature 98.1 F Pulse Rate 67 Respiratory 18 Rate Blood Pressure 121/78 O2 Sat by Pulse 100 Oximetry ED Medical Decision Making - Lab Data Result diagrams: 10/21/20 09:05 10/21/20 09:05 Lab Results 10/21/20 10/21/20 10/21/20 Range/Units 09:05 09:05 09:05 WBC 5.9 (4.5-11.0) K/mm3 RBC 4.46 (3.65-5.03) M/mm3 Hgb 13.0 (10.1-14.3) gm/dl Hct 39.8 (30.3-42.9) % MCV 89 (79-97) fl MCH 29 (28-32) pg MCHC 33 (30-34) % RDW 14.1 (13.2-15.2) % Plt Count 322 (140-440) K/mm3 Lymph % (Auto) 18.8 (13.4-35.0) % [place] % (Auto) 7.9 H (0.0-7.3) % Eos % (Auto) 0.4 (0.0-4.3) % Baso % (Auto) 0.5 (0.0-1.8) % Lymph # (Auto) 1.1 L (1.2-5.4) K/mm3 [place] # (Auto) 0.5 (0.0-0.8) K/mm3 Eos # (Auto) 0.0 (0.0-0.4) K/mm3 Baso # (Auto) 0.0 (0.0-0.1) K/mm3 Seg Neutrophils % 72.4 H (40.0-70.0) % Seg Neutrophils # 4.3 (1.8-7.7) K/mm3 Sodium 142 (137-145) mmol/L Potassium 4.1 (3.6-5.0) mmol/L Chloride 106.0 (98-107) mmol/L Carbon Dioxide 26 (22-30) mmol/L Anion Gap 14 mmol/L BUN 13 (7-17) mg/dL Creatinine 0.8 (0.6-1.2) mg/dL Estimated GFR > 60 ml/min BUN/Creatinine Ratio 16 % Glucose 127 H (65-100) mg/dL Calcium 9.4 (8.4-10.2) mg/dL Total Bilirubin 0.20 (0.1-1.2) mg/dL AST 16 (5-40) units/L ALT 12 (7-56) units/L Alkaline Phosphatase 79 (35-129) units/L Total Protein 7.9 (6.3-8.2) g/dL Albumin 4.2 (3.9-5) g/dL Albumin/Globulin Ratio 1.1 % Lipase 19 (13-60) units/L Urine Color Yellow (Yellow) Urine Turbidity Slightly-cloudy (Clear) Urine pH 7.0 (5.0-7.0) Ur Specific [place] 1.027 (1.003-1.030) Urine Protein <15 mg/dl (Negative) mg/dL Urine Glucose (UA) Neg (Negative) mg/dL Urine Ketones 20 (Negative) mg/dL Urine Blood Lg (Negative) Urine Nitrite Neg (Negative) Urine Bilirubin Neg (Negative) Urine Urobilinogen < 2.0 (<2.0) mg/dL Ur Leukocyte Esterase Tr (Negative) Urine WBC (Auto) 4.0 (0.0-6.0) /HPF Urine RBC (Auto) 4.0 (0.0-6.0) /HPF U Epithel Cells (Auto) 23.0 H (0-13.0) /HPF Urine Bacteria (Auto) 1+ (Negative) /HPF Urine Mucus 2+ /HPF Urine HCG, Qual Negative (Negative) - Medical Decision Making 25-year-old -Martiniquais female patient presents with complaints of sudden onset of nausea, vomiting, diarrhea, and burning upper abdominal pain starting around 3 or 4 AM last night. Patient states prior to going to sleep, she ate at [employer]. She reports that she awoke from her sleep feeling jittery and began to vomit. She denies any chest pain, shortness of breath, hematemesis/coffee-ground emesis, melena/hematochezia, cough, hematuria/dysuria/urinary frequency, or vaginal discharge. Patient rates her current abdominal pain is a 10/10 in severity. She denies alcohol intake or history of GERD She has minimal epigastric tenderness on exam without guarding or rebound. No significant abnormalities are noted on CBC,, CMP, lipase, or UA. Patient given GI cocktail and Pepcid and states her pain has significantly improved and now rates it as a 3/10 in severity. Exam and history appear to be consistent with gastroenteritis. Will treat conservatively with Zofran and antacids. Discussed importance of rehydration and follow-up with primary care in 3 days. Also discussed signs and symptoms that should prompt immediate return to the emergency department in detail with patient who verbalizes understanding. She is well-appearing, her vitals are normal, she is stable for discharge home Critical care attestation.: If time is entered above; I have spent that time in minutes in the direct care of this critically ill patient, excluding procedure time. ED Disposition Clinical Impression: Viral gastroenteritis Disposition: DC-01 TO HOME OR SELFCARE Is pt being admited?: No Condition: Stable Instructions: Viral Gastroenteritis, Adult, Abdominal Pain (ED) Prescriptions: Sucralfate [Carafate] 1 gm PO Q6HR PRN #20 tablet PRN Reason: abdominal pain Famotidine [Pepcid] 20 mg PO BID PRN #10 tablet PRN Reason: abdominal pain Ondansetron [Zofran Odt] 4 mg PO Q8HR #12 tab.rapdis Referrals: [facility] [Provider Group] - 3-5 Days
[2020-10-21] MEDS ORDERED: DICYCLOMINE 10 MG/5 ML ORAL LIQD PO SCH (10:30)
[2020-10-21] MEDS ORDERED: ONDANSETRON 4 MG ODT TAB PO ONE (10:42)
[2020-10-21] MEDS ORDERED: oxyCODONE /ACETAMINOPHEN 5-325MG TAB PO ONE (10:42)
== END 2020-10-21 11:47 | disposition home or self-care (01) ==
LOC: ED 08:40
DX: A08.4 Viral intestinal infection, unspecified (principal); F17.200 Nicotine dependence, unspecified, uncomplicated; F12.90 Cannabis use, unspecified, uncomplicated; J45.909 Unspecified asthma, uncomplicated; Z79.899 Other long term (current) drug therapy; Z91.013 Allergy to seafood
CPT/HCPCS: 36415; 80053; 81001; 81025; 83690; 85025; Q0162

== ENCOUNTER 2020-10-22 04:59 | Emergency (ER) | payer OTHER ==
[2020-10-22 06:26] VITALS: BP 117/55
--- NOTE | 2020-10-22 07:02 | XRay Report ---
CHEST 1 VIEW INDICATION: Chest Pain. COMPARISON: 01/12/2020 FINDINGS: Support devices: None. Heart: Normal. Lungs/Pleura: No acute pulmonary or pleural findings. IMPRESSION: 1. No acute findings. Signer Name: Russell Cooney MD Signed: 10/22/2020 6:58 AM Workstation Name: [id number]
[2020-10-22 07:57] LABS: Basophils % (Auto) 0.5 % (0.0-1.8); Eosinophils % (Auto) 0.2 % (0.0-4.3); Hematocrit 37.7 % (30.3-42.9); Hemoglobin 12.9 gm/dl (10.1-14.3); Lymphocytes # (Auto) 1.6 K/mm3 (1.2-5.4); Lymphocytes % (Auto) 22.2 % (13.4-35.0); Mean Corpuscular HGB Conc 34 % (30-34); Mean Corpuscular Volume 88 fl (79-97); Monocytes # (Auto) 0.6 K/mm3 (0.0-0.8); Monocytes % (Auto) 8.6 % (0.0-7.3); Platelet Count 338 K/mm3 (140-440); Red Blood Count 4.31 M/mm3 (3.65-5.03)
--- NOTE | 2020-10-22 08:23 | Emergency Department Report ---
ED Chest Pain HPI - General Chief Complaint: Chest Pain Stated Complaint: DEHYDRATION/CHEST TIGHTNESS Time Seen by Provider: 10/22/20 07:20 Source: patient Mode of arrival: Ambulatory Limitations: No Limitations - History of Present Illness Initial Comments: 25-year-old -[place] female patient presents with complaints of rapid heart rate, feeling flushed, and continued nausea after visit yesterday here in the ED. she also reports some chest tightness. Without shortness of breath. Patient was seen and treated for viral gastroenteritis. She states the Zofran is not helping with the nausea and she has had a few episodes of vomiting since her discharge yesterday. No abdominal pain today per patient. She also denies any fever. Patient has no past medical history. She denies any shortness of breath, leg pain/swelling, hemoptysis, hormone use, recent long travel/surgeries, or history of DVT/PE/cancer. - Related Data Previous Rx's Medication Instructions Recorded Last Taken Type Albuterol Mdi (or & Nicu Only) 2 puff IH QID PRN #8.5 gram 01/09/20 Unknown Rx [ProAir HFA Inhaler] cephALEXin [Keflex] 500 mg PO BID 10 Days #20 cap 01/09/20 Unknown Rx predniSONE [Deltasone] 40 mg PO QDAY 5 Days #10 tab 01/09/20 Unknown Rx HYDROcodone/APAP 5-325 [[place] 1 each PO Q4HR PRN #12 tablet 01/12/20 Unknown Rx 5/325] Ibuprofen [Motrin 800 MG tab] 800 mg PO Q8HR PRN #20 tablet 01/12/20 Unknown Rx Famotidine [Pepcid] 20 mg PO BID PRN #10 tablet 10/21/20 Unknown Rx Sucralfate [Carafate] 1 gm PO Q6HR PRN #20 tablet 10/21/20 Unknown Rx Ondansetron [Zofran ODT TAB] 4 mg PO Q8HR PRN #10 tab.rapdis 10/22/20 Unknown Rx predniSONE [Deltasone] 20 mg PO BID 3 Days #6 tab 10/22/20 Unknown Rx Allergies Allergy/AdvReac Type Severity Reaction Status Date / Time SEAFOOD Allergy Hives Uncoded 03/26/19 17:33 Heart Score - HEART Score History: Slightly suspicious EKG: Normal Age: < 45 Risk factors: No known risk factors Troponin: < normal limit HEART Score: 0 - Critical Actions Critical Actions: 0-3 pts:0.9-1.7%risk of adverse cardiac event.Candidate for discharge ED Review of Systems ROS: Stated complaint: DEHYDRATION/CHEST TIGHTNESS Other details as noted in HPI Constitutional: malaise, weakness. denies: diaphoresis, fever ENT: denies: ear pain Respiratory: denies: cough, shortness of breath Cardiovascular: chest pain, palpitations. denies: edema, syncope Gastrointestinal: nausea, vomiting. denies: abdominal pain, diarrhea, co nstipation, hematemesis, melena Genitourinary: denies: urgency, dysuria Musculoskeletal: denies: back pain, arthralgia Skin: denies: rash, lesions, change in color Neurological: denies: headache ED Past Medical Hx - Past Medical History Previous Medical History?: Yes Hx Asthma: Yes - Surgical History Past Surgical History?: No - Social History Smoking Status: Never Smoker Substance Use Type: None - Medications Home Medications: Home Medications Medication Instructions Recorded Confirmed Last Taken Type Albuterol Mdi (or & Nicu Only) 2 puff IH QID PRN #8.5 gram 01/09/20 Unknown Rx [ProAir HFA Inhaler] cephALEXin [Keflex] 500 mg PO BID 10 Days #20 cap 01/09/20 Unknown Rx predniSONE [Deltasone] 40 mg PO QDAY 5 Days #10 tab 01/09/20 Unknown Rx HYDROcodone/APAP 5-325 [[place] 1 each PO Q4HR PRN #12 tablet 01/12/20 Unknown Rx 5/325] Ibuprofen [Motrin 800 MG tab] 800 mg PO Q8HR PRN #20 tablet 01/12/20 Unknown Rx Famotidine [Pepcid] 20 mg PO BID PRN #10 tablet 10/21/20 Unknown Rx Sucralfate [Carafate] 1 gm PO Q6HR PRN #20 tablet 10/21/20 Unknown Rx Ondansetron [Zofran ODT TAB] 4 mg PO Q8HR PRN #10 tab.rapdis 10/22/20 Unknown Rx predniSONE [Deltasone] 20 mg PO BID 3 Days #6 tab 10/22/20 Unknown Rx ED Physical Exam - General Limitations: No Limitations General appearance: alert, in no apparent distress - Head Head exam: Present: atraumatic, normocephalic - Eye Eye exam: Present: normal appearance. Absent: scleral icterus - ENT ENT exam: Present: mucous membranes moist - Neck Neck exam: Present: normal inspection - Respiratory Respiratory exam: Present: normal lung sounds bilaterally. Absent: respiratory distress - Cardiovascular Cardiovascular Exam: Present: regular rate, normal rhythm, normal heart sounds - GI/Abdominal GI/Abdominal exam: Present: soft, normal bowel sounds. Absent: distended, tenderness, guarding, rebound, rigid - Extremities Exam Extremities exam: Present: full ROM. Absent: calf tenderness ED Course Vital Signs 10/22/20 05:04 Temperature 98.4 F Pulse Rate 61 Respiratory 16 Rate Blood Pressure 117/55 O2 Sat by Pulse 99 Oximetry ED Medical Decision Making - Lab Data Result diagrams: 10/22/20 07:34 10/22/20 07:34 Lab Results 10/22/20 10/22/20 10/22/20 Range/Units 07:34 07:34 07:34 WBC 7.0 (4.5-11.0) K/mm3 RBC 4.31 (3.65-5.03) M/mm3 Hgb 12.9 (10.1-14.3) gm/dl Hct 37.7 (30.3-42.9) % MCV 88 (79-97) fl MCH 30 (28-32) pg MCHC 34 (30-34) % RDW 14.0 (13.2-15.2) % Plt Count 338 (140-440) K/mm3 Lymph % (Auto) 22.2 (13.4-35.0) % [place] % (Auto) 8.6 H (0.0-7.3) % Eos % (Auto) 0.2 (0.0-4.3) % Baso % (Auto) 0.5 (0.0-1.8) % Lymph # (Auto) 1.6 (1.2-5.4) K/mm3 [place] # (Auto) 0.6 (0.0-0.8) K/mm3 Eos # (Auto) 0.0 (0.0-0.4) K/mm3 Baso # (Auto) 0.0 (0.0-0.1) K/mm3 Seg Neutrophils % 68.5 (40.0-70.0) % Seg Neutrophils # 4.8 (1.8-7.7) K/mm3 Sodium 137 (137-145) mmol/L Potassium 4.2 (3.6-5.0) mmol/L Chloride 102.3 (98-107) mmol/L Carbon Dioxide 24 (22-30) mmol/L Anion Gap 15 mmol/L BUN 10 (7-17) mg/dL Creatinine 0.8 (0.6-1.2) mg/dL Estimated GFR > 60 ml/min BUN/Creatinine Ratio 13 % Glucose 110 H (65-100) mg/dL Calcium 9.5 (8.4-10.2) mg/dL Total Bilirubin 0.50 (0.1-1.2) mg/dL AST 17 (5-40) units/L ALT 10 (7-56) units/L Alkaline Phosphatase 75 (35-129) units/L Troponin T < 0.010 (0.00-0.029) ng/mL Total Protein 7.7 (6.3-8.2) g/dL Albumin 4.1 (3.9-5) g/dL Albumin/Globulin Ratio 1.1 % TSH (0.270-4.200) mlU/mL HCG, Qual Negative (Negative) 10/22/20 Range/Units 07:34 WBC (4.5-11.0) K/mm3 RBC (3.65-5.03) M/mm3 Hgb (10.1-14.3) gm/dl Hct (30.3-42.9) % MCV (79-97) fl MCH (28-32) pg MCHC (30-34) % RDW (13.2-15.2) % Plt Count (140-440) K/mm3 Lymph % (Auto) (13.4-35.0) % [place] % (Auto) (0.0-7.3) % Eos % (Auto) (0.0-4.3) % Baso % (Auto) (0.0-1.8) % Lymph # (Auto) (1.2-5.4) K/mm3 [place] # (Auto) (0.0-0.8) K/mm3 Eos # (Auto) (0.0-0.4) K/mm3 Baso # (Auto) (0.0-0.1) K/mm3 Seg Neutrophils % (40.0-70.0) % Seg Neutrophils # (1.8-7.7) K/mm3 Sodium (137-145) mmol/L Potassium (3.6-5.0) mmol/L Chloride (98-107) mmol/L Carbon Dioxide (22-30) mmol/L Anion Gap mmol/L BUN (7-17) mg/dL Creatinine (0.6-1.2) mg/dL Estimated GFR ml/min BUN/Creatinine Ratio % Glucose (65-100) mg/dL Calcium (8.4-10.2) mg/dL Total Bilirubin (0.1-1.2) mg/dL AST (5-40) units/L ALT (7-56) units/L Alkaline Phosphatase (35-129) units/L Troponin T (0.00-0.029) ng/mL Total Protein (6.3-8.2) g/dL Albumin (3.9-5) g/dL Albumin/Globulin Ratio % TSH 0.591 (0.270-4.200) mlU/mL HCG, Qual (Negative) - EKG Data EKG shows normal: sinus rhythm Rate: normal - EKG Data Interpretation: normal EKG - Radiology Data Radiology results: report reviewed CHEST 1 VIEW INDICATION: Chest Pain. COMPARISON: 01/12/2020 FINDINGS: Support devices: None. Heart: Normal. Lungs/Pleura: No acute pulmonary or pleural findings. IMPRESSION: 1. No acute findings. - Medical Decision Making 25-year-old -[place] female patient presents with complaints of rapid heart rate, feeling flushed, and continued nausea after visit yesterday here in the ED. she also reports some chest tightness. Without shortness of breath. Patient was seen and treated for viral gastroenteritis. She states the Zofran is not helping with the nausea and she has had a few episodes of vomiting since her discharge yesterday. No abdominal pain today per patient. She also denies any fever. Patient has no past medical history. She denies any shortness of breath, leg pain/swelling, hemoptysis, hormone use, recent long travel/surgeries, or history of DVT/PE/cancer. Physical exam is normal. EKG is normal. Chest x-ray is normal. Suspect viral syndrome or possible COVID-19. Patient instructed to self quarantine and get COVID-19 testing-facility list provided to patient. Her vitals remain normal. Her CBC, CMP, troponin are normal. Instructed patient on how to take Zofran (30 minutes prior to eating) and signs and symptoms that should prompt immediate return to the emergency department in detail, patient verbalized understanding. Patient to follow-up with PCP in 3 days. Critical care attestation.: If time is entered above; I have spent that time in minutes in the direct care of this critically ill patient, excluding procedure time. ED Disposition Clinical Impression: Viral syndrome Disposition: DC-01 TO HOME OR SELFCARE Is pt being admited?: No Condition: Stable Instructions: COVID-19, Viral Illness, Adult Additional Instructions: Please take vitamin C and zinc daily Prescriptions: predniSONE [Deltasone] 20 mg PO BID 3 Days #6 tab Ondansetron [Zofran ODT TAB] 4 mg PO Q8HR PRN #10 tab.rapdis PRN Reason: Vomiting Referrals: PRIMARY CARE, [Primary Care Provider] - 3-5 Days
[2020-10-22] MEDS ORDERED: SODIUM CHLORIDE 0.9% 1000 ML 1,000 ML IV ONE (08:42)
[2020-10-22] MEDS ORDERED: dexAMETHasone 20 MG/5 ML VIAL IV ONE (08:42)
[2020-10-22 09:10] LABS: Alanine Aminotransferase 10 units/L (7-56); Albumin 4.1 g/dL (3.9-5); BUN/Creatinine Ratio 13; Blood Urea Nitrogen 10 mg/dL (7-17); Calcium 9.5 mg/dL (8.4-10.2); Hemolysis Index 3
== END 2020-10-22 10:22 | disposition home or self-care (01) ==
LOC: ED 04:59
DX: B34.9 Viral infection, unspecified (principal); J45.909 Unspecified asthma, uncomplicated; Z79.1 Long term (current) use of non-steroidal anti-inflammatories (NSAID); Z79.899 Other long term (current) drug therapy; Z91.013 Allergy to seafood
CPT/HCPCS: 36415; 71045; 80053; 84443; 84484; 84703; 85025; 93005; 96361; 96374; 99284; J1100; J7030

== ENCOUNTER 2020-12-01 08:06 | Emergency (ER) | payer SELFPAY ==
[2020-12-01] MEDS ORDERED: FAMOTIDINE 20 MG TAB PO ONE (08:19)
[2020-12-01] MEDS ORDERED: ACETAMINOPHEN 325 MG TAB PO ONE (08:19)
[2020-12-01] MEDS ORDERED: ONDANSETRON 4 MG ODT TAB PO ONE (08:24)
--- NOTE | 2020-12-01 08:24 | Emergency Department Report ---
ED General Adult HPI - General Chief complaint: Upper Respiratory Infection Stated complaint: NAUSEA/STOMACH PAIN/CHEST SANTOS Time Seen by Provider: 12/01/20 08:18 Source: patient Mode of arrival: Ambulatory Limitations: No Limitations - History of Present Illness Initial comments: 25-year-old -Luxembourger female patient presents with complaints of intermittent body aches, nausea, intermittent headaches, cough, shortness of breath, and burning stomach pain x3 days. She has a history of anxiety depression per patient. She denies any hemoptysis, chest pain, leg pain/swelling, fever/chills/sweats, recent long travel, hormone use, or history of DVT/PE. No abdominal pain per patient or diarrhea. She denies trying any OTC medications for her pain. She rates her current headache as 8/10 in severity. - Related Data Previous Rx's Medication Instructions Recorded Last Taken Type Albuterol Mdi (or & Nicu Only) 2 puff IH QID PRN #8.5 gram 01/09/20 Unknown Rx [ProAir HFA Inhaler] cephALEXin [Keflex] 500 mg PO BID 10 Days #20 cap 01/09/20 Unknown Rx predniSONE [Deltasone] 40 mg PO QDAY 5 Days #10 tab 01/09/20 Unknown Rx HYDROcodone/APAP 5-325 [Isom 1 each PO Q4HR PRN #12 tablet 01/12/20 Unknown Rx 5/325] Ibuprofen [Motrin 800 MG tab] 800 mg PO Q8HR PRN #20 tablet 01/12/20 Unknown Rx Famotidine [Pepcid] 20 mg PO BID PRN #10 tablet 10/21/20 Unknown Rx Sucralfate [Carafate] 1 gm PO Q6HR PRN #20 tablet 10/21/20 Unknown Rx Ondansetron [Zofran ODT TAB] 4 mg PO Q8HR PRN #10 tab.rapdis 10/22/20 Unknown Rx predniSONE [Deltasone] 20 mg PO BID 3 Days #6 tab 10/22/20 Unknown Rx Benzonatate 200 mg PO TID PRN #21 capsule 12/01/20 Unknown Rx Famotidine [Pepcid] 20 mg PO BID 10 Days #20 tablet 12/01/20 Unknown Rx Ondansetron [Zofran Odt] 4 mg PO Q8HR PRN #12 tab.rapdis 12/01/20 Unknown Rx Sucralfate [Carafate] 1 gm PO Q6HR 10 Days #40 tablet 12/01/20 Unknown Rx Allergies Allergy/AdvReac Type Severity Reaction Status Date / Time SEAFOOD Allergy Hives Uncoded 03/26/19 17:33 ED Review of Systems ROS: Stated complaint: NAUSEA/STOMACH PAIN/CHEST SANTOS Other details as noted in HPI Constitutional: denies: chills, diaphoresis, fever, malaise, weakness Eyes: denies: eye pain, vision change ENT: denies: throat pain Respiratory: cough, shortness of breath. denies: wheezing Cardiovascular: denies: chest pain, palpitations, edema, syncope Gastrointestinal: abdominal pain, nausea. denies: vomiting Genitourinary: denies: urgency, dysuria Skin: denies: rash, lesions, change in color Neurological: headache Psychiatric: anxiety, depression. denies: auditory hallucinations, visual hallucinations, homicidal thoughts, suicidal thoughts ED Past Medical Hx - Past Medical History Previous Medical History?: Yes Hx Asthma: Yes - Social History Smoking Status: Current Some Day Smoker Substance Use Type: Alcohol, Marijuana - Medications Home Medications: Home Medications Medication Instructions Recorded Confirmed Last Taken Type Albuterol Mdi (or & Nicu Only) 2 puff IH QID PRN #8.5 gram 01/09/20 Unknown Rx [ProAir HFA Inhaler] cephALEXin [Keflex] 500 mg PO BID 10 Days #20 cap 01/09/20 Unknown Rx predniSONE [Deltasone] 40 mg PO QDAY 5 Days #10 tab 01/09/20 Unknown Rx HYDROcodone/APAP 5-325 [Isom 1 each PO Q4HR PRN #12 tablet 01/12/20 Unknown Rx 5/325] Ibuprofen [Motrin 800 MG tab] 800 mg PO Q8HR PRN #20 tablet 01/12/20 Unknown Rx Famotidine [Pepcid] 20 mg PO BID PRN #10 tablet 10/21/20 Unknown Rx Sucralfate [Carafate] 1 gm PO Q6HR PRN #20 tablet 10/21/20 Unknown Rx Ondansetron [Zofran ODT TAB] 4 mg PO Q8HR PRN #10 tab.rapdis 10/22/20 Unknown Rx predniSONE [Deltasone] 20 mg PO BID 3 Days #6 tab 10/22/20 Unknown Rx Benzonatate 200 mg PO TID PRN #21 capsule 12/01/20 Unknown Rx Famotidine [Pepcid] 20 mg PO BID 10 Days #20 tablet 12/01/20 Unknown Rx Ondansetron [Zofran Odt] 4 mg PO Q8HR PRN #12 tab.rapdis 12/01/20 Unknown Rx Sucralfate [Carafate] 1 gm PO Q6HR 10 Days #40 tablet 12/01/20 Unknown Rx ED Physical Exam - General Limitations: No Limitations General appearance: alert, in no apparent distress, obese - Head Head exam: Present: atraumatic, normocephalic - Eye Eye exam: Present: normal appearance. Absent: scleral icterus - ENT ENT exam: Present: normal exam - Neck Neck exam: Present: normal inspection. Absent: lymphadenopathy - Respiratory Respiratory exam: Present: normal lung sounds bilaterally. Absent: respiratory distress - Cardiovascular Cardiovascular Exam: Present: regular rate, normal rhythm - GI/Abdominal GI/Abdominal exam: Present: soft. Absent: distended, tenderness, guarding, rebound, rigid - Back Exam Back exam: Present: full ROM - Neurological Exam Neurological exam: Present: alert, oriented X3, normal gait. Absent: motor sensory deficit - Psychiatric Psychiatric exam: Present: normal affect, anxious - Skin Skin exam: Present: warm, dry ED Course Vital Signs 12/01/20 08:14 Temperature 98.0 F Pulse Rate 77 Respiratory 18 Rate Blood Pressure 123/81 O2 Sat by Pulse 99 Oximetry ED Medical Decision Making - Lab Data Result diagrams: 12/01/20 08:58 12/01/20 08:58 Lab Results 12/01/20 12/01/20 Range/Units 08:58 08:58 WBC 5.5 (4.5-11.0) K/mm3 RBC 4.38 (3.65-5.03) M/mm3 Hgb 12.9 (10.1-14.3) gm/dl Hct 38.4 (30.3-42.9) % MCV 88 (79-97) fl MCH 29 (28-32) pg MCHC 34 (30-34) % RDW 14.0 (13.2-15.2) % Plt Count 326 (140-440) K/mm3 Lymph % (Auto) 21.4 (13.4-35.0) % [place] % (Auto) 13.9 H (0.0-7.3) % Eos % (Auto) 1.0 (0.0-4.3) % Baso % (Auto) 0.4 (0.0-1.8) % Lymph # (Auto) 1.2 (1.2-5.4) K/mm3 [place] # (Auto) 0.8 (0.0-0.8) K/mm3 Eos # (Auto) 0.1 (0.0-0.4) K/mm3 Baso # (Auto) 0.0 (0.0-0.1) K/mm3 Seg Neutrophils % 63.3 (40.0-70.0) % Seg Neutrophils # 3.5 (1.8-7.7) K/mm3 Sodium 137 (137-145) mmol/L Potassium 3.6 (3.6-5.0) mmol/L Chloride 103.1 (98-107) mmol/L Carbon Dioxide 26 (22-30) mmol/L Anion Gap 12 mmol/L BUN 7 (7-17) mg/dL Creatinine 0.8 (0.6-1.2) mg/dL Estimated GFR > 60 ml/min BUN/Creatinine Ratio 9 % Glucose 117 H (65-100) mg/dL Calcium 9.0 (8.4-10.2) mg/dL Total Bilirubin 0.40 (0.1-1.2) mg/dL AST 17 (5-40) units/L ALT 11 (7-56) units/L Alkaline Phosphatase 69 (35-129) units/L Total Protein 7.6 (6.3-8.2) g/dL Albumin 4.1 (3.9-5) g/dL Albumin/Globulin Ratio 1.2 % Lipase 13 (13-60) units/L - Radiology Data Radiology results: report reviewed CHEST PA AND LATERAL VIEWS INDICATION: SOB. COMPARISON: 10/22/2020 FINDINGS: Support devices: None Heart: Normal and unchanged Lungs/Pleura: No acute pulmonary or pleural findings. IMPRESSION: 1. No active disease and no interval change. - Medical Decision Making 25-year-old -Luxembourger female patient presents with complaints of intermittent body aches, nausea, intermittent headaches, cough, shortness of breath, and burning stomach pain x3 days. She has a history of anxiety depression per patient. She denies any hemoptysis, chest pain, leg pain/sw elling, fever/chills/sweats, recent long travel, hormone use, or history of DVT/PE. No abdominal pain per patient or diarrhea. She denies trying any OTC medications for her pain. She rates her current headache as 8/10 in severity. Patient admitted to intermittent thoughts of suicide since her brother , however she denies any current thoughts of suicide or plan of suicide. She states compliance with her antidepressants. No homicidal ideations or hallucinations per patient. No abnormalities noted on physical exam. PERC score = 0. Chest x-ray is normal. CBC and CMP are normal. Will treat for viral upper respiratory infection, conservatively. Recommend patient receive outpatient Covid [id number] testing facility list provided to patient. She is to follow-up with her primary care in 3 to 5 days. Strict return precautions were discussed in detail with patient who verbalizes understanding. Critical care attestation.: If time is entered above; I have spent that time in minutes in the direct care of this critically ill patient, excluding procedure time. ED Disposition Clinical Impression: Viral URI with cough GERD (gastroesophageal reflux disease) Qualifiers: Esophagitis presence: without esophagitis Qualified Code(s): K21.9 - Gastro- esophageal reflux disease without esophagitis Disposition: - TO HOME OR SELFCARE Is pt being admited?: No Condition: Stable Instructions: Upper Respiratory Infection, Adult, [id number], Heartburn, Food Choices for Gastroesophageal Reflux Disease, Adult Prescriptions: Benzonatate 200 mg PO TID PRN #21 capsule PRN Reason: Cough Sucralfate [Carafate] 1 gm PO Q6HR 10 Days #40 tablet Famotidine [Pepcid] 20 mg PO BID 10 Days #20 tablet Ondansetron [Zofran Odt] 4 mg PO Q8HR PRN #12 tab.rapdis PRN Reason: Nausea Referrals: PRIMARY CARE,MD [Primary Care Provider] - 2-3 Days
[2020-12-01 09:35] LABS: Basophils % (Auto) 0.4 % (0.0-1.8); Eosinophils # (Auto) 0.1 K/mm3 (0.0-0.4); Hematocrit 38.4 % (30.3-42.9); Hemoglobin 12.9 gm/dl (10.1-14.3); Lymphocytes # (Auto) 1.2 K/mm3 (1.2-5.4); Lymphocytes % (Auto) 21.4 % (13.4-35.0); Mean Corpuscular HGB Conc 34 % (30-34); Mean Corpuscular Volume 88 fl (79-97); Monocytes # (Auto) 0.8 K/mm3 (0.0-0.8); Monocytes % (Auto) 13.9 % (0.0-7.3); Platelet Count 326 K/mm3 (140-440); Red Blood Count 4.38 M/mm3 (3.65-5.03)
[2020-12-01 09:57] LABS: Alanine Aminotransferase 11 units/L (7-56); Albumin 4.1 g/dL (3.9-5); BUN/Creatinine Ratio 9; Blood Urea Nitrogen 7 mg/dL (7-17); Hemolysis Index 3
--- NOTE | 2020-12-01 09:59 | XRay Report ---
CHEST PA AND LATERAL VIEWS INDICATION: SOB. COMPARISON: 10/22/2020 FINDINGS: Support devices: None Heart: Normal and unchanged Lungs/Pleura: No acute pulmonary or pleural findings. IMPRESSION: 1. No active disease and no interval change. Signer Name: Carlo Doty MD Signed: 12/01/2020 9:55 AM Workstation Name: [id number]
[2020-12-01 11:02] VITALS: BP 119/72
== END 2020-12-01 11:03 | disposition home or self-care (01) ==
LOC: ED 08:06
DX: K21.9 Gastro-esophageal reflux disease without esophagitis (principal); J06.9 Acute upper respiratory infection, unspecified; R05 Cough; J45.909 Unspecified asthma, uncomplicated; F17.200 Nicotine dependence, unspecified, uncomplicated; F12.90 Cannabis use, unspecified, uncomplicated; Z79.899 Other long term (current) drug therapy; Z91.013 Allergy to seafood
CPT/HCPCS: 36415; 71046; 80053; 83690; 85025; Q0162

== ENCOUNTER 2021-03-28 06:42 | Emergency (ER) | payer SELFPAY ==
[2021-03-28 07:20] VITALS: BP 117/83
--- NOTE | 2021-03-28 08:53 | Emergency Department Report ---
ED General Adult HPI - General Chief complaint: Nausea/Vomiting/Diarrhea Stated complaint: N/V,, CHEST PAIN Time Seen by Provider: 03/28/21 08:48 Source: patient Mode of arrival: Ambulatory Limitations: No Limitations - History of Present Illness Initial comments: 25-year-old female patient with history of anxiety presents to the emergency department with complaints of nausea and vomiting starting this morning. Patient states she experienced 2 episodes of nonbloody emesis upon waking. States nausea and vomiting have been a recurring issue for her over the last several months. She has not seen a primary care provider. She was seen at another local emergency department earlier this week for the same symptoms. Diagnostic work-up was unremarkable and she was advised to follow-up on an outpatient basis. States she cannot recall the name of the antiemetic medicine she was prescribed. Symptoms are not any different today. No history of prior abdominal surgeries. No known sick contacts. No current steroid or antibiotic use. She is already taking medications for GERD. Denies fever, chills, hematemesis, abdominal pain, diarrhea, constipation, rectal bleeding, urinary symptoms, vaginal bleeding, vaginal discharge. Denies other complaints at this time Severity scale (0 -10): 10 - Related Data Previous Rx's Medication Instructions Recorded Last Taken Type Albuterol Mdi (or & Nicu Only) 2 puff IH QID PRN #8.5 gram 01/09/20 Unknown Rx [ProAir HFA Inhaler] cephALEXin [Keflex] 500 mg PO BID 10 Days #20 cap 01/09/20 Unknown Rx predniSONE [Deltasone] 40 mg PO QDAY 5 Days #10 tab 01/09/20 Unknown Rx HYDROcodone/APAP 5-325 [[place] 1 each PO Q4HR PRN #12 tablet 01/12/20 Unknown Rx 5/325] Ibuprofen [Motrin 800 MG tab] 800 mg PO Q8HR PRN #20 tablet 01/12/20 Unknown Rx Famotidine [Pepcid] 20 mg PO BID PRN #10 tablet 10/21/20 Unknown Rx Sucralfate [Carafate] 1 gm PO Q6HR PRN #20 tablet 10/21/20 Unknown Rx Ondansetron [Zofran ODT TAB] 4 mg PO Q8HR PRN #10 tab.rapdis 10/22/20 Unknown Rx predniSONE [Deltasone] 20 mg PO BID 3 Days #6 tab 10/22/20 Unknown Rx Benzonatate 200 mg PO TID PRN #21 capsule 12/01/20 Unknown Rx Famotidine [Pepcid] 20 mg PO BID 10 Days #20 tablet 12/01/20 Unknown Rx Ondansetron [Zofran Odt] 4 mg PO Q8HR PRN #12 tab.rapdis 12/01/20 Unknown Rx Sucralfate [Carafate] 1 gm PO Q6HR 10 Days #40 tablet 12/01/20 Unknown Rx Ondansetron [Zofran Odt] 4 mg PO Q8HR #20 tab.rapdis 03/28/21 Unknown Rx Allergies Allergy/AdvReac Type Severity Reaction Status Date / Time SEAFOOD Allergy Hives Uncoded 03/26/19 17:33 ED Review of Systems ROS: Stated complaint: N/V,, CHEST PAIN Other details as noted in HPI ED Past Medical Hx - Past Medical History Previous Medical History?: Yes Hx Asthma: Yes - Social History Smoking Status: Current Some Day Smoker Substance Use Type: Alcohol, Marijuana - Medications Home Medications: Home Medications Medication Instructions Recorded Confirmed Last Taken Type Albuterol Mdi (or & Nicu Only) 2 puff IH QID PRN #8.5 gram 01/09/20 Unknown Rx [ProAir HFA Inhaler] cephALEXin [Keflex] 500 mg PO BID 10 Days #20 cap 01/09/20 Unknown Rx predniSONE [Deltasone] 40 mg PO QDAY 5 Days #10 tab 01/09/20 Unknown Rx HYDROcodone/APAP 5-325 [[place] 1 each PO Q4HR PRN #12 tablet 01/12/20 Unknown Rx 5/325] Ibuprofen [Motrin 800 MG tab] 800 mg PO Q8HR PRN #20 tablet 01/12/20 Unknown Rx Famotidine [Pepcid] 20 mg PO BID PRN #10 tablet 10/21/20 Unknown Rx Sucralfate [Carafate] 1 gm PO Q6HR PRN #20 tablet 10/21/20 Unknown Rx Ondansetron [Zofran ODT TAB] 4 mg PO Q8HR PRN #10 tab.rapdis 10/22/20 Unknown Rx predniSONE [Deltasone] 20 mg PO BID 3 Days #6 tab 10/22/20 Unknown Rx Benzonatate 200 mg PO TID PRN #21 capsule 12/01/20 Unknown Rx Famotidine [Pepcid] 20 mg PO BID 10 Days #20 tablet 12/01/20 Unknown Rx Ondansetron [Zofran Odt] 4 mg PO Q8HR PRN #12 tab.rapdis 12/01/20 Unknown Rx Sucralfate [Carafate] 1 gm PO Q6HR 10 Days #40 tablet 12/01/20 Unknown Rx Ondansetron [Zofran Odt] 4 mg PO Q8HR #20 tab.rapdis 03/28/21 Unknown Rx ED Physical Exam - General Limitations: No Limitations - Other Other exam information: General: Awake and alert. No acute distress. Head: Atraumatic, normocephalic. Eyes: EOMI. Pupils are equal and round. Normal sclera and conjunctiva. ENT: Oral mucosa is moist. Normal pharyngeal exam. Neck: Supple. No lymphadenopathy. Pulmonary: No respiratory distress. Clear to auscultation bilaterally. Cardiac: Regular rate and rhythm. Pulses are palpable and equal bilaterally. No lower extremity cyanosis or edema. Skin: Warm and dry. No rashes. Abdomen: Soft, non-tender, non-protuberant. No guarding, rigidity, or rebound. Bowel sounds are normal. No organomegaly or masses noted. Back: Normal alignment. No CVA tenderness. Extremities: Symmetrical. Full range of motion intact. Neurological: Alert and oriented, appropriately interactive, no focal deficits. Psych: Cooperative. Appropriate mood and affect. Speech is evenly metered. Thoughts are logically construed. ED Course Vital Signs 03/28/21 07:18 Temperature 98.3 F Pulse Rate 72 Respiratory 17 Rate Blood Pressure 117/83 [Right] O2 Sat by Pulse 99 Oximetry ED Medical Decision Making - Medical Decision Making Differential diagnosis including but not limited to: cholecystitis, cholelithiasis, appendicitis, , peptic ulcer disease, pancreatitis, viral infection Patient presents emergency department following 2 episodes of nonbloody emesis this morning. She is afebrile. Vital signs are stable. Abdomen is soft, nontender, nondistended. No clinical signs of dehydration. Patient has had no vomiting in the emergency department. Patient states that she has been experiencing ongoing nausea and vomiting for several months. She has been evaluated at multiple emergency departments locally, but has not followed up with an outpatient provider. Prior work-ups for identical symptoms have been unremarkable; symptoms are unchanged today. No clinical indication for further diagnostic work-up on an emergent basis at this time. Patient will be discharged home with antiemetics and provided with multiple referrals for local primary care providers. Emphasized the importance of calling primary care provider today to schedule a follow-up appointment for further evaluation and definitive management of her ongoing nausea/vomiting. Patient expressed understanding and is agreeable to plan of care. Strict return precautions provided. History, exam, diagnostic testing, and current condition do not suggest worrisome pathology to warrant further testing, continued ED treatment, admission, or surgical evaluation at this point. Given the low probability of a significant medical illness, it would be more likely to result in harm than benefit to perform further testing at this stage. Discussed findings, presumptive diagnosis, need for follow-up and specific signs/symptoms that should prompt immediate return to the emergency department. Instructions were explained in detail to the patient in addition to giving written discharge information. Patient expressed understanding and was given the opportunity to ask questions, all of which were satisfactorily answered prior to discharge home. Critical care attestation.: If time is entered above; I have spent that time in minutes in the direct care of this critically ill patient, excluding procedure time. ED Disposition Clinical Impression: Nausea & vomiting Qualifiers: Vomiting type: unspecified Vomiting Intractability: non-intractable Qualified Code(s): R11.2 - Nausea with vomiting, unspecified Disposition: DC-01 TO HOME OR SELFCARE Is pt being admited?: No Does the pt Need Aspirin: No Condition: Stable Instructions: Nausea and Vomiting, Adult Additional Instructions: Take Zofran as directed for nausea/vomiting. Rest. Drink plenty of fluids. Gradually advance diet slowly as tolerated. You must follow-up with local primary care provider to definitively manage this ongoing issue. See referral information below. Return to the emergency department immediately for new or worsening symptoms. Specifically, return to the emergency department immediately for fever, abdominal pain, dehydration, rectal bleeding, difficulty using the bathroom, or any other concerns. Prescriptions: Ondansetron [Zofran Odt] 4 mg PO Q8HR #20 tab.rapdis Referrals: CHRISTIE ESPITIA MD [Staff Physician] - 3-[address] [facility] [place] [Outside] - 3-5 Days [facility] [Outside] - 3-5 Days [facility] [Outside] - 3-5 Days Time of Disposition: 08:53
== END 2021-03-28 08:57 | disposition home or self-care (01) ==
LOC: ED 06:42
DX: R11.2 Nausea with vomiting, unspecified (principal); J45.909 Unspecified asthma, uncomplicated; F17.200 Nicotine dependence, unspecified, uncomplicated; F12.10 Cannabis abuse, uncomplicated; Z79.899 Other long term (current) drug therapy
CPT/HCPCS: 99281

== ENCOUNTER 2021-05-07 06:27 | Emergency (ER) | payer SELFPAY ==
[2021-05-07 07:06] VITALS: BP 106/67
[2021-05-07 09:22] LABS: Bacteria,Urine 1+ /HPF (Negative); Bilirubin,Urine NEG (Negative); Blood,Urine LG (Negative); Color,Urine Yellow (Yellow); Mucus,Urine 2+ /HPF; Urobilinogen,Urine < 2.0 mg/dL (<2.0)
[2021-05-07 09:34] LABS: HCG Qualitative,Urine Negative (Negative); RBC,Urine > 182.0 /HPF (0.0-6.0)
== END 2021-05-07 09:55 | disposition home or self-care (01) ==
LOC: ED 06:27
DX: N39.0 Urinary tract infection, site not specified (principal); N94.6 Dysmenorrhea, unspecified; R11.0 Nausea; K21.9 Gastro-esophageal reflux disease without esophagitis; J45.909 Unspecified asthma, uncomplicated; F17.200 Nicotine dependence, unspecified, uncomplicated; F12.90 Cannabis use, unspecified, uncomplicated; Z72.89 Other problems related to lifestyle; Z91.013 Allergy to seafood; Z79.899 Other long term (current) drug therapy
CPT/HCPCS: 81001; 81025; 87086; 96372; 99283; J0696; J1630; J1885

== ENCOUNTER 2022-02-10 08:57 | Emergency (ER) | payer SELFPAY ==
[2022-02-10 09:47] VITALS: BP 116/73
--- NOTE | 2022-02-10 10:06 | Emergency Department Report ---
Upper Extremity - HPI Chief Complaint: Extremity Injury, Upper Stated Complaint: RT ARM PAIN/VAGINAL PAIN Time Seen by Provider: 02/10/22 09:49 Upper Extremity: Right Shoulder, Right Arm Occurred When: 2 Days Severity: moderate Symptoms: Yes Pain with Movement, No Deformity, No Limited Range of Movement, No Numbness, No Weakness, No Swelling, No Bruising/Ecchymosis, No Laceration or Abrasion Other History: This is a pleasant 26-year-old female presents emerged from chief complaint of right upper back, right sided shoulder pain that radiates into her elbow that has been ongoing for the past day. She reports she woke up last night and noticed increasing pain with any movement. She denies any injuries. 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 She denies any associated fever, chills, night sweats, headache, dizziness, blurry vision, nausea, vomit, diarrhea, chest pain, shortness of breath, weakness or any other associated symptoms. ED Review of Systems ROS: Stated complaint: RT ARM PAIN/VAGINAL PAIN Other details as noted in HPI Comment: All other systems reviewed and negative Constitutional: denies: chills, fever Eyes: denies: eye pain, eye discharge, vision change ENT: denies: ear pain, throat pain Respiratory: denies: cough, shortness of breath, wheezing Cardiovascular: denies: chest pain, palpitations Endocrine: no symptoms reported Gastrointestinal: denies: abdominal pain, nausea, diarrhea Genitourinary: denies: urgency, dysuria, discharge Musculoskeletal: as per HPI, arthralgia. denies: back pain, joint swelling Skin: denies: rash, lesions Neurological: denies: headache, weakness, paresthesias Psychiatric: denies: anxiety, depression Hematological/Lymphatic: denies: easy bleeding, easy bruising ED Past Medical Hx - Past Medical History Hx GERD: Yes Hx Asthma: Yes - Social History Smoking Status: Current Some Day Smoker Substance Use Type: Alcohol, Marijuana - Medications Home Medications: Home Medications Medication Instructions Recorded Confirmed Last Taken Type Acetaminophen 500 mg PO Q4HR #30 cap 02/10/22 Unknown Rx Pnv,Calcium 72/Iron/Folic Acid 1 each PO DAILY #30 02/10/22 Unknown Rx [ Plus Tablet] Upper Extremity Exam - Exam General: Vital signs noted. No distress. Alert and acting appropriately. Head and Torso: No HEENT Abnormality, No Neck Tenderness, No Chest/Lungs Abnormality, No Abdominal Tenderness, No Back Tenderness Shoulder Exam: Yes Shoulder Tenderness (Tenderness palpation over the anterior and lateral shoulder. Pain with Vines sign. Pain with empty can test. Negative drop arm test. Normal Apley's maneuver. Normal equal radial pulses bi laterally), Yes Normal Range of Motion in Shoulder, No Clavicle Tenderness, No Shoulder Deformity, No AC Joint Tenderness Arm Exam: No Arm/Humerus Tenderness, No Arm Deformity Elbow: No Elbow Tenderness, No Normal Range of Motion in Elbow, No Elbow Deformity Forearm: No Forearm Tenderness, No Forearm Deformity, No Pain with Pronation, No Pain with Supination Wrist: Yes Normal ROM in Wrist, No Wrist Tenderness, No Wrist Deformity, No Snuffbox Tenderness, No Pain with Axial Thumb Compression Hand: Yes Normal ROM in Digit(s), No Hand Tenderness, No Hand Deformity, No Digit Tenderness, No Digit(s) Deformity, No Tendon Dysfunction CMS Exam: No Broken Skin, No Normal Distal Pulses, No Normal Capillary Refill, No Normal Distal Sensation ED Course Vital Signs 02/10/22 02/10/22 09:44 09:47 Temperature 97.9 F Pulse Rate 59 L Respiratory 16 Rate Blood Pressure 116/73 O2 Sat by Pulse 100 Oximetry - Reevaluation(s) Reevaluation #1: 02/10/22 10:52 The patient's test returned positive. She denies any vaginal bleeding, lower abdominal pain, lower back pain, loss of fluid or any other symptoms. I did offer to do an ultrasound and lab work however she politely declined and preferred to follow-up with a [employer]. She did understand that if she develops any symptoms such as abdominal pain, back pain, vaginal bleeding or any other changing or worsening symptoms she should return to the emergency department. We will treat her pain with Tylenol, gentle stretching and exercises and outpatient follow-up with orthopedics as needed. Return to the emerge department any change or worsening symptoms. She verbalized understand the diagnosis, treatment plan and follow-up instructions all of her questions were answered. ED Medical Decision Making - Medical Decision Making Patient nontoxic in no acute distress. Vital signs are stable. Her exam was consistent with a shoulder strain versus impingement of the rotator cuff. Recommended anti-inflammatories, muscle relaxers and follow-up with orthopedics as needed. Recommend she return the emerge department if develops any change or worsening symptoms. She is PERC negative and low risk by Wells criteria. - Differential Diagnosis Strain, sprain, rotator cuff tear Critical care attestation.: If time is entered above; I have spent that time in minutes in the direct care of this critically ill patient, excluding procedure time. ED Disposition Clinical Impression: Positive test Sprain of right shoulder Qualifiers: Encounter type: initial encounter Shoulder sprain type: unspecified sprain Qualified Code(s): S43.401A - Unspecified sprain of right shoulder joint, initial encounter Disposition: HOME / SELF CARE / HOMELESS Is pt being admited?: No Condition: Stable Instructions: Shoulder Sprain Prescriptions: Acetaminophen 500 mg PO Q4HR #30 cap Pnv,Calcium 72/Iron/Folic Acid [ Plus Tablet] 1 each PO DAILY #30 Referrals: PRIMARY CARE, [Primary Care Provider] - 3-5 Days MESERET OSWALD MD [Staff Physician] - 3-5 Days SARAH DICKSON MD [Staff Physician] - 3-5 Days Forms: Work/School Release Form(ED) Time of Disposition: 10:54
[2022-02-10 10:35] LABS: HCG Qualitative,Urine Positive (Negative)
== END 2022-02-10 11:25 | disposition home or self-care (01) ==
LOC: ED 08:57
DX: S43.401A Unspecified sprain of right shoulder joint, initial encounter (principal); Z32.01 Encounter for pregnancy test, result positive; X58.XXXA Exposure to other specified factors, initial encounter; Y93.89 Activity, other specified; Y92.89 Other specified places as the place of occurrence of the external cause; Y99.8 Other external cause status
CPT/HCPCS: 81025; 99283

== ENCOUNTER 2022-02-16 10:05 | Emergency (ER) | payer SELFPAY ==
--- NOTE | 2022-02-16 11:38 | Emergency Department Report ---
ED HPI - General Chief complaint: Abdominal Pain Stated complaint: UNK WKS /HEAVY BLEEDING/ABD DISCOMFORT Time Seen by Provider: 02/16/22 10:53 Source: patient Mode of arrival: Ambulatory Limitations: No Limitations - History of Present Illness Initial comments: This is a 26-year-old female nontoxic, well nourished in appearance, no acute signs of distress presents to the ED with c/o of vaginal bleeding x4 days. Patient stated goes about 2 paids in 24 hours. Patient denies any abdominal or pelvic pain. Patient denies any vaginal discharge or foul odor. Patient denies any nausea, vomiting, chest pain, shortness of breathe, fever, chills, headache, stiff neck, numbness, tingling. Patient denies any urinary symptoms. Patient denies any drug allergies. MD Complaint: vaginal bleeding -: days(s) Severity scale (0 -10): 0 Improves with: none Worsens with: none Associated symptoms: vaginal bleeding. denies: nausea/vomiting, vaginal discharge, abdominal pain, dysuria, headache, vision changes, malaise, rash, seizure, shortness of breath, syncope, weakness Vaginal bleeding: light - Related Data Previous Rx's Medication Instructions Recorded Last Taken Type Acetaminophen 500 mg PO Q4HR #30 cap 02/10/22 Unknown Rx Pnv,Calcium 72/Iron/Folic Acid 1 each PO DAILY #30 02/10/22 Unknown Rx [ Plus Tablet] cephALEXin [Keflex] 500 mg PO Q8HR #21 cap 02/16/22 Unknown Rx Allergies Allergy/AdvReac Type Severity Reaction Status Date / Time shellfish derived Allergy Anaphylaxis Verified 02/10/22 09:49 ED Review of Systems ROS: Stated complaint: UNK WKS /HEAVY BLEEDING/ABD DISCOMFORT Other details as noted in HPI Comment: All other systems reviewed and negative Constitutional: denies: chills, fever Eyes: denies: eye pain, eye discharge, vision change ENT: denies: ear pain, throat pain Respiratory: denies: cough, shortness of breath, wheezing Cardiovascular: denies: chest pain, palpitations Endocrine: no symptoms reported Gastrointestinal: denies: abdominal pain, nausea, diarrhea Genitourinary: abnormal menses. denies: urgency, dysuria, frequency, hematuria, discharge, dyspareunia Musculoskeletal: denies: back pain, joint swelling, arthralgia Skin: denies: rash, lesions Neurological: denies: headache, weakness, paresthesias Psychiatric: denies: anxiety, depression Hematological/Lymphatic: denies: easy bleeding, easy bruising ED Past Medical Hx - Past Medical History Hx GERD: Yes Hx Asthma: Yes - Social History Smoking Status: Current Some Day Smoker Substance Use Type: Alcohol, Marijuana - Medications Home Medications: Home Medications Medication Instructions Recorded Confirmed Last Taken Type Acetaminophen 500 mg PO Q4HR #30 cap 02/10/22 Unknown Rx Pnv,Calcium 72/Iron/Folic Acid 1 each PO DAILY #30 02/10/22 Unknown Rx [ Plus Tablet] cephALEXin [Keflex] 500 mg PO Q8HR #21 cap 02/16/22 Unknown Rx ED Physical Exam - General Limitations: No Limitations General appearance: alert, in no apparent distress - Head Head exam: Present: atraumatic, normocephalic - Eye Eye exam: Present: normal appearance - Neck Neck exam: Present: normal inspection, full ROM. Absent: lymphadenopathy - Respiratory Respiratory exam: Absent: respiratory distress - Cardiovascular Cardiovascular Exam: Present: regular rate - GI/Abdominal GI/Abdominal exam: Present: soft, normal bowel sounds. Absent: distended, tenderness, guarding, rebound, rigid - Extremities Exam Extremities exam: Present: full ROM - Back Exam Back exam: Present: normal inspection, full ROM. Absent: tenderness, CVA tenderness (R), CVA tenderness (L), muscle spasm, paraspinal tenderness, vertebral tenderness, rash noted - Neurological Exam Neurological exam: Present: alert, oriented X3, normal gait - Psychiatric Psychiatric exam: Present: normal affect, normal mood - Skin Skin exam: Present: warm, dry, intact, normal color. Absent: rash ED Course Vital Signs 02/16/22 10:15 Temperature 98.4 F Pulse Rate 69 Respiratory 18 Rate Blood Pressure 116/78 [Right] O2 Sat by Pulse 99 Oximetry - Reevaluation(s) Reevaluation #1: 02/16/22 11:38 Patient is speaking in full sentences with no signs of distress noted. ED Medical Decision Making - Lab Data Result diagrams: 02/16/22 11:23 Lab Results 02/16/22 02/16/22 02/16/22 Range/Units 11:23 11:23 11:23 WBC 4.0 L (4.5-11.0) K/mm3 RBC 4.21 (3.65-5.03) M/mm3 Hgb 12.6 (10.1-14.3) gm/dl Hct 37.6 (30.3-42.9) % MCV 89 (79-97) fl MCH 30 (28-32) pg MCHC 34 (30-34) % RDW 13.5 (13.2-15.2) % Plt Count 285 (140-440) K/mm3 Brooks % (Auto) Machine Rebuilder PT 13.4 (12.2-14.9) Sec. INR 0.92 (0.87-1.13) APTT 30.0 (24.2-36.6) Sec. HCG, Quant 99.77 H (0-4) mIU/mL Blood Type 02/16/22 Range/Units 11:26 WBC (4.5-11.0) K/mm3 RBC (3.65-5.03) M/mm3 Hgb (10.1-14.3) gm/dl Hct (30.3-42.9) % MCV (79-97) fl MCH (28-32) pg MCHC (30-34) % RDW (13.2-15.2) % Plt Count (140-440) K/mm3 Brooks % (Auto) PT (12.2-14.9) Sec. INR (0.87-1.13) APTT (24.2-36.6) Sec. HCG, Quant (0-4) mIU/mL Blood Type O POSITIVE Lab Results 02/16/22 02/16/22 02/16/22 Range/Units 11:23 11:23 11:23 WBC 4.0 L (4.5-11.0) K/mm3 RBC 4.21 (3.65-5.03) M/mm3 Hgb 12.6 (10.1-14.3) gm/dl Hct 37.6 (30.3-42.9) % MCV 89 (79-97) fl MCH 30 (28-32) pg MCHC 34 (30-34) % RDW 13.5 (13.2-15.2) % Plt Count 285 (140-440) K/mm3 Brooks % (Auto) Machine Rebuilder Add Manual Diff Complete Total Counted 100 Seg Neuts % (Manual) 45.0 (40.0-70.0) % Band Neutrophils % 0 % Lymphocytes % (Manual) 36.0 H (13.4-35.0) % Reactive Lymphs % (Man) 0 % Monocytes % (Manual) 14.0 H (0.0-7.3) % Eosinophils % (Manual) 4.0 (0.0-4.3) % Basophils % (Manual) 1.0 (0.0-1.8) % Metamyelocytes % 0 % Myelocytes % 0 % Promyelocytes % 0 % Blast Cells % 0 % Nucleated RBC % Not Reportable Seg Neutrophils # Man 1.8 (1.8-7.7) K/mm3 Band Neutrophils # 0.0 K/mm3 Lymphocytes # (Manual) 1.4 (1.2-5.4) K/mm3 Abs React Lymphs (Man) 0.0 K/mm3 Monocytes # (Manual) 0.6 (0.0-0.8) K/mm3 Eosinophils # (Manual) 0.2 (0.0-0.4) K/mm3 Basophils # (Manual) 0.0 (0.0-0.1) K/mm3 Metamyelocytes # 0.0 K/mm3 Myelocytes # 0.0 K/mm3 Promyelocytes # 0.0 K/mm3 Blast Cells # 0.0 K/mm3 WBC Morphology Not Reportable Hypersegmented Neuts Not Reportable Hyposegmented Neuts Not Reportable Hypogranular Neuts Not Reportable Smudge Cells Not Reportable Toxic Granulation Not Reportable Toxic Vacuolation Not Reportable Dohle Bodies Not Reportable Pelger-Huet Anomaly Not Reportable Hillary Rods Not Reportable Platelet Estimate Consistent w auto Clumped Platelets Not Reportable Plt Clumps, EDTA Not Reportable Large Platelets Not Reportable Giant Platelets Not Reportable Platelet Satelliting Not Reportable Plt Morphology Comment Not Reportable RBC Morphology Normal Dimorphic RBCs Not Reportable Polychromasia Not Reportable Hypochromasia Not Reportable Poikilocytosis Not Reportable Anisocytosis Not Reportable Microcytosis Not Reportable Macrocytosis Not Reportable Spherocytes Not Reportable Pappenheimer Bodies Not Reportable Sickle Cells Not Reportable Target Cells Not Reportable Tear Drop Cells Not Reportable Ovalocytes Not Reportable Helmet Cells Not Reportable Gay-[place] Bodies Not Reportable [place] Rings Not Reportable Blaise Cells Not Reportable Bite Cells Not Reportable Crenated Cell Not Reportable Elliptocytes Not Reportable Acanthocytes (Spur) Not Reportable Rouleaux Not Reportable Hemoglobin C Crystals Not Reportable Schistocytes Not Reportable Malaria parasites Not Reportable Erickson Bodies Not Reportable Hem Pathologist Commnt No PT 13.4 (12.2-14.9) Sec. INR 0.92 (0.87-1.13) APTT 30.0 (24.2-36.6) Sec. HCG, Quant 99.77 H (0-4) mIU/mL Urine Color (Yellow) Urine Turbidity (Clear) Urine pH (5.0-7.0) Ur Specific [place] (1.003-1.030) Urine Protein (Negative) mg/dL Urine Glucose (UA) (Negative) mg/dL Urine Ketones (Negative) mg/dL Urine Blood (Negative) Urine Nitrite (Negative) Urine Bilirubin (Negative) Urine Urobilinogen (<2.0) mg/dL Ur Leukocyte Esterase (Negative) Urine WBC (Auto) (0.0-6.0) /HPF Urine RBC (Auto) (0.0-6.0) /HPF U Epithel Cells (Auto) (0-13.0) /HPF Urine Bacteria (Auto) (Negative) /HPF Urine Mucus /HPF Blood Type 02/16/22 02/16/22 Range/Units 11:26 Unknown WBC (4.5-11.0) K/mm3 RBC (3.65-5.03) M/mm3 Hgb (10.1-14.3) gm/dl Hct (30.3-42.9) % MCV (79-97) fl MCH (28-32) pg MCHC (30-34) % RDW (13.2-15.2) % Plt Count (140-440) K/mm3 Brooks % (Auto) Add Manual Diff Total Counted Seg Neuts % (Manual) (40.0-70.0) % Band Neutrophils % % Lymphocytes % (Manual) (13.4-35.0) % Reactive Lymphs % (Man) % Monocytes % (Manual) (0.0-7.3) % Eosinophils % (Manual) (0.0-4.3) % Basophils % (Manual) (0.0-1.8) % Metamyelocytes % % Myelocytes % % Promyelocytes % % Blast Cells % % Nucleated RBC % Seg Neutrophils # Man (1.8-7.7) K/mm3 Band Neutrophils # K/mm3 Lymphocytes # (Manual) (1.2-5.4) K/mm3 Abs React Lymphs (Man) K/mm3 Monocytes # (Manual) (0.0-0.8) K/mm3 Eosinophils # (Manual) (0.0-0.4) K/mm3 Basophils # (Manual) (0.0-0.1) K/mm3 Metamyelocytes # K/mm3 Myelocytes # K/mm3 Promyelocytes # K/mm3 Blast Cells # K/mm3 WBC Morphology Hypersegmented Neuts Hyposegmented Neuts Hypogranular Neuts Smudge Cells Toxic Granulation Toxic Vacuolation Dohle Bodies Pelger-Huet Anomaly Hillary Rods Platelet Estimate Clumped Platelets Plt Clumps, EDTA Large Platelets Giant Platelets Platelet Satelliting Plt Morphology Comment RBC Morphology Dimorphic RBCs Polychromasia Hypochromasia Poikilocytosis Anisocytosis Microcytosis Macrocytosis Spherocytes Pappenheimer Bodies Sickle Cells Target Cells Tear Drop Cells Ovalocytes Helmet Cells Gay-[place] Bodies [place] Rings Blaise Cells Bite Cells Crenated Cell Elliptocytes Acanthocytes (Spur) Rouleaux Hemoglobin C Crystals Schistocytes Malaria parasites Erickson Bodies Hem Pathologist Commnt PT (12.2-14.9) Sec. INR (0.87-1.13) APTT (24.2-36.6) Sec. HCG, Quant (0-4) mIU/mL Urine Color Yellow (Yellow) Urine Turbidity Slightly-cloudy (Clear) Urine pH 5.0 (5.0-7.0) Ur Specific [place] 1.029 (1.003-1.030) Urine Protein 30 mg/dl (Negative) mg/dL Urine Glucose (UA) Neg (Negative) mg/dL Urine Ketones Tr (Negative) mg/dL Urine Blood Lg (Negative) Urine Nitrite Neg (Negative) Urine Bilirubin Neg (Negative) Urine Urobilinogen < 2.0 (<2.0) mg/dL Ur Leukocyte Esterase Neg (Negative) Urine WBC (Auto) 11.0 H (0.0-6.0) /HPF Urine RBC (Auto) 117.0 (0.0-6.0) /HPF U Epithel Cells (Auto) 25.0 H (0-13.0) /HPF Urine Bacteria (Auto) 1+ (Negative) /HPF Urine Mucus 3+ /HPF Blood Type O POSITIVE - Radiology Data [address] [address] Ultrasound Report Signed Patient: MARY GUPTA MR#: [id number] : 1995 Acct:[id number] Age/Sex: 26 / F ADM Date: 02/16/22 Loc: ED Attending Dr: Ordering Physician: VANESSA BARKER NP Date of Service: 02/16/22 Procedure(s): US OB transvaginal Accession Number(s): [id number] cc: VANESSA BARKER NP ULTRASOUND OBSTETRIC INDICATION / CLINICAL INFORMATION: vaginal bleeding and pelvic pain. Clinical Gestational Age (GA) in weeks, days: Unknown TECHNIQUE: Transabdominal and Transvaginal. COMPARISON: None available. FINDINGS: GESTATIONAL SAC: Not seen YOLK SAC: Not seen EMBRYO/FETUS: Not seen ADNEXA: No significant abnormality. FREE FLUID: None. ADDITIONAL FINDINGS: None. IMPRESSION: 1. No evidence of intrauterine gestation. In the presence of a positive test this is a of unknown location in the differential includes very early versus missed versus ectopic. Recommend repeat ultrasound in 7-10 days. Signer Name: Víctor Pittman DO Signed: 02/16/2022 1:08 PM Workstation Name: [id number] Transcribed By: NS Dictated By: VÍCTOR PITTMAN DO Electronically Authenticated By: VÍCTOR PITTMAN DO Signed Date/Time: 02/16/22 130 DD/ 1308 TD/TT: [address] [address] Ultrasound Report Signed Patient: MARY GUPTA MR#: [id number] : 1995 Acct:[id number] Age/Sex: 26 / F ADM Date: 02/16/22 Loc: ED Attending Dr: Ordering Physician: VANESSA BARKER NP Date of Service: 02/16/22 Procedure(s): US OB <= 14 weeks fetus Accession Number(s): [id number] cc: VANESSA BARKER NP ULTRASOUND OBSTETRIC INDICATION / CLINICAL INFORMATION: vaginal bleeding and pelvic pain. Clinical Gestational Age (GA) in weeks, days: Unknown TECHNIQUE: Transabdominal and Transvaginal. COMPARISON: None available. FINDINGS: GESTATIONAL SAC: Not seen YOLK SAC: Not seen EMBRYO/FETUS: Not seen ADNEXA: No significant abnormality. FREE FLUID: None. ADDITIONAL FINDINGS: None. IMPRESSION: 1. No evidence of intrauterine gestation. In the presence of a positive pregna ncy test this is a of unknown location in the differential includes very early versus missed versus ectopic. Recommend repeat ultrasound in 7-10 days. Signer Name: Víctor Pittman DO Signed: 02/16/2022 1:08 PM Workstation Name: [id number] Transcribed By: COREEN Dictated By: VÍCTOR PITTMAN DO Electronically Authenticated By: VÍCTOR PITTMAN DO Signed Date/Time: 02/16/221307 DD/ 07 TD/TT: - Medical Decision Making This is a 26-year-old female presents with threatened miscarriage. Patient is stable and was examined by me. Normal abdominal exam. US OB obtained and dictated by the radiologist. Ua obtained. Exam does not show possible ectopic . Quantative serum test obtained. Patient notified of the US report with no questions noted by the patient. Patient was instructed f/u with INSULATION TECHNICIAN in 2 days. RH factor positive. Labs within normal limits. Patient was given strict precautions and education on ectopic . At time of discharge, the patient does not seem toxic or ill in appearance. No acute signs of distress noted. Patient agrees to discharge treatment plan of care. No further questions noted by the patient. Critical care attestation.: If time is entered above; I have spent that time in minutes in the direct care o f this critically ill patient, excluding procedure time. ED Disposition Clinical Impression: Positive test, Threatened miscarriage UTI (urinary tract infection) Qualifiers: Urinary tract infection type: acute cystitis Hematuria presence: with hematuria Qualified Code(s): N30.01 - Acute cystitis with hematuria Disposition: HOME / SELF CARE / HOMELESS Is pt being admited?: No Does the pt Need Aspirin: No Condition: Stable Instructions: Threatened Miscarriage, Abdominal Pain (ED) Additional Instructions: Follow-up with a OBGYN doctor in 2 days for repeat quantitative test and possible ultrasound or if symptoms worsen and continue return to emergency room as soon as possible. Prescriptions: cephALEXin [Keflex] 500 mg PO Q8HR #21 cap Referrals: PRIMARY CARE, [Referring] - 3-5 Days [facility] [Provider Group] - 02/18/22 [facility] [Provider Group] - 02/18/22 Time of Disposition: 13:49
[2022-02-16 12:04] LABS: INR 0.92 (0.87-1.13)
[2022-02-16 12:06] LABS: Hematocrit 37.6 % (30.3-42.9); Hemoglobin 12.6 gm/dl (10.1-14.3); Mean Corpuscular HGB Conc 34 % (30-34); Mean Corpuscular Volume 89 fl (79-97); Platelet Count 285 K/mm3 (140-440); Red Blood Count 4.21 M/mm3 (3.65-5.03); Red Cell Distribution Width 13.5 % (13.2-15.2)
--- NOTE | 2022-02-16 13:13 | Ultrasound Report ---
ULTRASOUND OBSTETRIC INDICATION / CLINICAL INFORMATION: vaginal bleeding and pelvic pain. Clinical Gestational Age (GA) in weeks, days: Unknown TECHNIQUE: Transabdominal and Transvaginal. COMPARISON: None available. FINDINGS: GESTATIONAL SAC: Not seen YOLK SAC: Not seen EMBRYO/FETUS: Not seen ADNEXA: No significant abnormality. FREE FLUID: None. ADDITIONAL FINDINGS: None. IMPRESSION: 1. No evidence of intrauterine gestation. In the presence of a positive test this is a preg morena of unknown location in the differential includes very early versus missed ve rsus ectopic. Recommend repeat ultrasound in 7-10 days. Signer Name: Víctor Toussaint DO Signed: 02/16/2022 1:08 PM Workstation Name: [id number]
[2022-02-16 13:50] LABS: Platelet Estimate Consistent w Auto; RBC Morphology Normal; Total Cells Counted 100
[2022-02-16 14:16] LABS: Bacteria,Urine 1+ /HPF (Negative); Bilirubin,Urine NEG (Negative); Blood,Urine LG (Negative); Color,Urine Yellow (Yellow); Mucus,Urine 3+ /HPF; Urobilinogen,Urine < 2.0 mg/dL (<2.0)
[2022-02-16 14:58] VITALS: BP 118/80
== END 2022-02-16 15:02 | disposition home or self-care (01) ==
LOC: ED 10:05
DX: O20.0 Threatened abortion (principal); O23.41 Unspecified infection of urinary tract in pregnancy, first trimester; N39.0 Urinary tract infection, site not specified; K21.9 Gastro-esophageal reflux disease without esophagitis; F17.200 Nicotine dependence, unspecified, uncomplicated; J45.909 Unspecified asthma, uncomplicated; F12.90 Cannabis use, unspecified, uncomplicated; Z72.89 Other problems related to lifestyle; Z3A.01 Less than 8 weeks gestation of pregnancy; Z79.899 Other long term (current) drug therapy; Z91.013 Allergy to seafood
CPT/HCPCS: 36415; 76801; 76817; 81001; 84702; 85007; 85025; 85610; 85730; 86900; 86901; 87086; 99284